=== PATIENT | male | born 1940 | race Caucasian/White ===

== ENCOUNTER 2024-12-09 14:33 | Emergency (ER) | payer MEDICARE, MEDICAID, SELFPAY ==
[2024-12-09 15:03] VITALS: BP 167/61
--- NOTE | 2024-12-09 15:09 | ED.GENMED ---
History of Present Illness
General
Chief Complaint: Fall
Source: long term (Called and spoke with nursing facility who reports patient had an unwitnessed fall in the shower with suspected head strike.)
Exam Limitations: dementia
Time Seen by Provider: 12/09/24 14:38
Nursing documentation reviewed up to this point in time: agreed with
History of Present Illness
History of Present Illness:
Patient is an 84-year-old male with history dementia, hypertension, hyperlipidemia, diabetes presenting to the emergency department via EMS from nursing facility for unwitnessed fall. Patient arrives alert although is unable to contribute much to
history given dementia. Did call and speak to nurse at facility who reports that patient wandered off and got in the shower where he slipped and fell. This was an unwitnessed fall. However�people were able to get in quickly to assist him. They do
note that he has a bump on the back of his head. Patient does report some mild pain on the right and left side of his neck although no midline tenderness. No numbness/tingling in lower extremities. No extremity pain.
Patient takes a baby aspirin. No other blood thinners.
Review of Systems
Review of Systems
Allergies reviewed?: Yes
All Other Systems: ROS reviewed and negative except as documented in HPI and ROS
Phy Exam
Physical Exam
Physical Exam:
GENERAL: No acute distress
HEENT: Mild contusion noted to posterior scalp, extraocular muscles intact, no signs of entrapment, dentition intact, no other obvious trauma
NECK: Very mild tenderness to right and left upper trapezius, no midline tenderness, normal range of motion, no other obvious trauma
BACK: no midline tenderness, no other obvious trauma
CHEST: no tenderness, no flail segment, no subcutaneous emphysema, no other obvious trauma
LUNGS: clear to auscultation bilaterally. O2 saturation 99 on room air
CARDIOVASCULAR: regular rate and rhythm
ABDOMEN: soft, non-tender, no masses, no other obvious trauma
PELVIS: stable, no obvious injury
EXTREMITIES: moving all extremities, full range of motion in bilateral lower extremities including internal/external rotation of hips without pain, distal pulses intact, no other obvious trauma
NEUROLOGIC: awake, alert x [address], not time, no focal deficits
Course
Orders/Labs/Results
Orders:
Orders
12/09/24 14:49
CT Head W/o Iv Contrast Urgent
Comment:
Reason For Exam: unwitnessed fall, head strike
Cervical Spine wo Contrast CT [CT Cervical Spine W/o Iv Contr] Urgent
Comment:
Reason For Exam: unwitnessed fall, head strike, left neck pain
Acetaminophen [Tylenol] 650 mg PO NOW STA
Abnormal Lab Results
12/09/24
17:29
POC Glucose 156 H mg/dl
(70-99)
Vital Signs
Initial and Last Documented VS:
Initial Vital Signs
Temp Pulse Resp
97.7 F 71 18
12/09/24 14:36 12/09/24 14:36 12/09/24 14:36
Last Documented Vital Signs
Temp Pulse Resp BP Pulse Ox
97.7 F 84 18 155/73 98
12/09/24 14:36 12/09/24 16:00 12/09/24 16:00 12/09/24 16:00 12/09/24 16:00
MDM/Problems Addressed
Differential Diagnosis Includes:
Not limited to: Contusion, concussion, intra cerebral hemorrhage, cervical spine fracture, etc.
MDM/Problems Addressed:
84-year-old male presenting after unwitnessed fall with head strike. Patient at baseline mental status as he does have a history of dementia. No acute complaints. Hypertensive, otherwise stable vital signs on arrival. On exam�patient is
well-appearing, in no apparent distress. Mild contusion noted to posterior scalp. No midline cervical spine or spinal tenderness. However�there is very mild tenderness to the upper trapezius on both right and left side. Patient has full range of
motion in bilateral upper and lower extremities without pain. Abdomen soft and nontender. Cardio/pulmonary assessment unremarkable. Patient has regular pulse. Patient has no focal neurologic deficits. Patient does take a baby aspirin, otherwise
no blood thinners. Fall appears to be mechanical in nature, as he slipped in shower. Accu-Chek obtained with no evidence of hypoglycemia. Given unwitnessed nature of fall and head strike�will obtain CT head and cervical spine.
Update: CT head and cervical spine without any acute abnormalities. Patient has remained stable in no apparent distress. Possible minor cervical muscle strain. Patient is not hypoxic. His vital signs remained stable. He is in no discomfort.
Feel patient is stable for discharge home to facility. Return precautions discussed. Case discussed with attending physician.
Chronic conditions affecting care:
Dementia
Acute Exacerbation and/or Progression of Chronic Illness:
N/A
*Radiology
Radiology exam reviewed: radiology read reviewed
*Pulse Oximetry
Patient hypoxic: no
*EKG
Interpreted by ED Provider?: NA
*Seismograph Chief Interpretation
Rate: Seismograph Chief- N/A
*Critical Care Note
Total Time (30-74mins, 75-104mins- exclusive of procedures): Not Applicable
ED Attending Note
-
Portions of this chart may have been created with voice recognition software.� Occasional wrong word or��sound alike� substitutions may have occurred due to the inherent limitations of voice recognition software.
Discharge Plan
Departure
Patient Disposition: Home (Routine Discharge)
Date of Disposition: 12/09/24
Time of Disposition: 17:33
Patient with high blood pressure during this ER visit?: No
Condition: Good
Covid-19: Not Applicable
Discharge Problem:
Fall, Head injury
Instructions: Head injury in adults, Fall Prevention for Older Adults
Referrals:
Avel Ma I., DO [Family Provider] - Follow up in 2-3 days
Activity Restrictions/Additional Instructions:
Return to the emergency department with any changes in mental status, severe headache/neck pain, intractable nausea/vomiting, visual changes, weakness, numbness/tingling in extremities, worsening in current symptoms, or any other concerns
�As discussed your CT head and CT cervical spine showed no acute injuries from your fall today.
-You can take Tylenol as needed for any discomfort. Stay well-hydrated.
-Follow-up with your primary care provider in a few days to ensure symptoms are improving/for further evaluation
Monitor your symptoms closely and return to the emergency department any acute worsening/new symptoms or any other concerns
Interventions
Interventions:
*Risk Screen - Suicide Last Done: 12/09/24 14:36
*General Assessment Last Done: 12/09/24 14:36
*Neglect/Abuse Screening Last Done: 12/09/24 14:36
*ED COVID-19 Vaccine History Last Done: 12/09/24 14:36
ED-Musculoskeletal Assessment Last Done: 12/09/24 14:43
ED- Neurological Assessment Last Done: 12/09/24 14:43
ED-Skin Assessment Last Done: 12/09/24 14:43
Discharge Date and Time
Print Language: LEBANESE
[2024-12-09 16:00] VITALS: BP 155/73
[2024-12-09 17:30] LABS: Glucose - Point of Care 156 mg/dl (70-99)
[2024-12-09 18:28] VITALS: BP 155/68
== END 2024-12-09 19:48 ==
LOC: EMR 14:33
PROVIDERS: EMERGENCY PHYSICIAN Emergency Medicine; FAMILY PHYSICIAN Internal Medicine
DX: S00.03XA Contusion of scalp, initial encounter (principal); W18.2XXA Fall in (into) shower or empty bathtub, initial encounter; F03.90 Unspecified dementia, unspecified severity, without behavioral disturbance, psychotic disturbance, mood disturbance, and anxiety; E11.9 Type 2 diabetes mellitus without complications; E78.5 Hyperlipidemia, unspecified; I10 Essential (primary) hypertension
CPT/HCPCS: 99284; 70450; 72125; 82962

== ENCOUNTER 2024-12-27 13:35 | Inpatient (IN) | payer MEDICARE, OTHER, SELFPAY ==
[2024-12-27] VITALS (9 sets, daily range): BP systolic 112–161; BP diastolic 48–72; BMI 22.9
[2024-12-27 09:41] LABS: Hematocrit 36.5 % (39.0-52.0); Mean Corp Hgb Conc. 32.9 g/dL (33.0-37.0); Mean Corpuscular Hgb 32.5 pg (27.0-31.0); Mean Corpuscular Volume 98.9 fL (80.0-94.0); Mean Platelet Volume 11.4 fL (7.4-10.4); Platelet Count 202 10^3/uL (130-400); Red Blood Cell Count 3.69 10^6/uL (4.70-6.10); Red Cell Dist. Width 15.9 % (11.5-14.5); White Blood Cell Count 16.9 10^3/uL (4.8-10.8)
[2024-12-27 09:53] LABS: ALT (SGPT) 15 U/L (0-50); AST (SGOT) 23 U/L (17-59); Albumin 4.1 g/dl (3.5-5.0); Alkaline Phosphatase 111 U/L (38-126); Blood Urea Nitrogen 34 mg/dl (9-20); Carbon Dioxide 32 mmol/L (22-30); Chloride 101 mmol/L (98-107); Glucose 116 mg/dl (70-99); Potassium 4.5 mmol/L (3.5-5.1); Sodium 142 mmol/L (135-145); Total Bilirubin 1.3 mg/dl (0.2-1.3); Total Protein 6.4 g/dl (6.3-8.2); eGFR > 60.00
[2024-12-27 09:58] LABS: Urine Albumin 2+ (Neg - Trace); Urine Bilirubin Negative (Negative); Urine Character Slightly Cloudy (Clear); Urine Color Yellow; Urine Glucose Negative (Negative); Urine Ketone Negative (Negative); Urine Leukocyte 2+ (Negative); Urine Nitrite Negative (Negative); Urine Occult Blood 4+ (Negative); Urine Urobilinogen 1+ (Neg - 1+)
[2024-12-27 10:02] LABS: COVID-19 Antigen Negative (Negative)
--- NOTE | 2024-12-27 10:36 | ED.GENMED ---
History of Present Illness
General
Chief Complaint: Change in Mental Status
Time Seen by Provider: 12/27/24 10:09
History of Present Illness
History of Present Illness:
84-year-old male with history of dementia, hypertension, hyperlipidemia, peripheral vascular disease, and gij-[id number] diabetes presents to the emergency department for evaluation of altered mental status for the past several days. Arrives
with a fever noted on vital signs. Patient states 'I think I am okay'. He denies any pain at this time. History otherwise limited due to dementia
Review of Systems
Review of Systems
Allergies reviewed?: Yes
All Other Systems: ROS reviewed and negative except as documented in HPI and ROS
Phy Exam
Physical Exam
Physical Exam:
GEN: Well appearing, NAD, WDWN
HEENT: Oral mucosa moist, no scleral icterus
Cardiac: Mildly tachycardic and irregular
Lung: No respiratory distress, no tachypnea, crackles heard at the bases bilaterally
MSK: No gross deformity or injuries, 2+ pitting edema to the mid lower legs bilaterally
Skin: Good color, no pallor or jaundice, no rashes
Neuro: Asleep, arouses to voice, confused but answers simple questions appropriately, moves all extremities freely
Psych: Calm, cooperative
Sepsis
Sepsis Screening
Sepsis Assessment: Severe Sepsis
Sepsis Screening: Lactate >2mmol/L
Sepsis Screen
Sepsis Screen: Severe Sepsis
Date: 12/27/24
Time: 10:30
Course
Orders/Labs/Results
Orders:
Orders
12/27/24 09:25
NT-proBNP Urgent
Troponin I Urgent
12/27/24 09:28
COVID-19 Antigen Urgent
Source: Nasal Swab
Complete Blood Count/With Diff Urgent
Comprehensive Metabolic Panel Urgent
Glycohemoglobin (HgbA1c) Urgent
Manual Differential Urgent
Urinalysis Reflex To Culture Urgent
Date Specimen was Collected: 12/27/24
Time Specimen was Collected: 09:23
Urine Microscopic Reflex Cult Urgent
Influenza A+B Rapid Molecular Urgent
HARRIS Source: Nasal Swab
Specimen Description:
Legionella Urinary Antigen Urgent
HARRIS Source: Urine
Specimen Description:
Strep pneumoniae Antigen Urgent
HARRIS Source: Urine
Specimen Description:
Urine Culture Urgent
HARRIS Source: U
Specimen Description:
Date Specimen was Collected: 12/27/24
Time Specimen was Collected: 09:23
12/27/24 Lunch
NPO
Allow oral meds: Yes
Allow clear liquids: Sips of Clears
NPO with Ice Chips: Yes
12/27/24 10:37
0.9% Sodium Chloride 1000 ml [Nss] 1,000 ml IV BOLUS
Acetaminophen 1000MG/100Ml [Ofirmev] 1,000 mg in 100 ml IV ONCE
Acetaminophen IV Indication:: ED Narcotic Naive Pt-ONCE
12/27/24 10:38
CR Chest Portable - 1 View Urgent
Comment:
Reason For Exam: fever
Reason Study Needs to be Portable: Other
12/27/24 10:39
Electrocardiogram (*1) Urgent
Reason for Study: Tachycardia
12/27/24 10:54
Lactic Acid Q4H
Comment: CANCEL 2nd LACTIC ACID IF 1st LACTIC ACID IS LESS THAN 2
Blood Culture Q30M
HARRIS Source: Blood/Venous
Specimen Description:
12/27/24 10:55
Blood Culture Q30M
HARRIS Source: Blood/Venous
Specimen Description:
12/27/24 11:21
CefTRIAXone [Rocephin] 1,000 mg IV NOW STA
12/27/24 11:44
Azithromycin 500 mg/250 ml [Zithromax Infusion] 500 mg in 250 ml IV NOW
12/27/24 11:54
Furosemide [Lasix] 40 mg IV ONCE ONE
12/27/24 12:28
CT Abd/pel Without Iv Or Oral Urgent
Comment:
Reason For Exam: UTI, eval hydronbephrosis
12/27/24 12:51
CARDIOLOGY CONSULT Routine
Consulting Provider: Reuben Orozco
Was physician already notified: Yes
Reason for consult: elevated trop
12/27/24 12:52
Respiratory Culture/Gram Stain Urgent
HARRIS Source: Sputum
Specimen Description:
12/27/24 12:53
Admit/Transfer Patient As Directed
Co-Sign Provider:
Level of Care: Inpatient admission
Assign to:: Telemetry
Physician / Group: Hospitalist
Diagnosis: sepsis
Reason for Telemetry: Chest Pain syndromes
Date to Stop Telemetry: 12/29/24
Time to Stop Telemetry: 11:00
Reason for Hospitalization: sepsis
Expected length of stay greater than two midnights?: Yes
ELOS- Estimated Length of Stay in days: 4
I certify the patient meets the requirements for IP care: Yes
PRN Pain Medication Management As Directed
May give lesser potent ordered pain med per pt: Yes
preference::
Protocol:: Medication orders for pain may be administered in a
manner that supports deferring to patient preference
when the pt is:
- Requesting an ordered lesser potent pain medication.
Least to most potent pain medications are defined
as: acetaminophen < NSAID < tramadol < opioids
(morphine, oxycodone, hydromorphone).
- Requesting a lesser dose of the same medication IF
ORDERED.
- Requesting a less intrusive route of administration
if both routes are prescribed by the provider (PO <
IV).
12/27/24 12:54
Code Status As Directed
Resuscitation Status: Do not resuscitate
Reached after discussion with pt or family/Healthcare POA: Yes
DNR Bracelet Application ONCE
12/27/24 13:00
Dextrose 5%/0.9%Sodchl 1000 ml [D5/0.9% Sodium Chloride] 1,000 ml IV 70 mls/hr
Flush (0.9% Sodium Chloride) [Flush (Nss)] See Dose Instructions IV PER PROTOCOL
12/27/24 13:54
Lactic Acid Q4H
Comment: CANCEL 2nd LACTIC ACID IF 1st LACTIC ACID IS LESS THAN 2
Troponin I Q6H
12/27/24 14:00
Doxycycline Hyclate [Vibramycin] 100 mg 0.9% Sodium Chloride 250 ml [Nss] 250 ml IV Q12H
12/27/24 14:36
Acetaminophen [Tylenol] 650 mg PO Q4HPRN PRN
Bisacodyl [Dulcolax] 10 mg RECTAL [id number] PRN
Dextrose 50%-Water [Dextrose 50% Syringe] 12.5 grams IV [id number] PRN
Docusate W/Senna [Senokot-S] 1 tablet PO BIDPRN PRN
Glucagon [GlucaGen] 1 mg IM PRN PRN
Polyethylene Glycol Powder [Miralax] 17 grams PO DAILYPRN PRN
12/27/24 14:36
Add On- LAB Routine
Tests Added?: HgbA1C to today's lab
Echo 2D MMode Color/Doppler Routine
Reason for Study: elevated troponin
Activity As Directed
Activity Level: Out of Bed-Early Mobility
Vital Signs As Directed
Frequency: Per unit guidelines
O2 Therapy [RESP] Routine
Titrate/Wean O2 to maintain O2 sat greater than (%): 90
Speech Therapy Eval & Treat Routine
DX Deep Vein Thrombosis Video Routine
12/27/24 16:00
Heparin 5,000 units SC Q8
12/27/24 16:30
Insulin Aspart Corrective Low [Novolog Flexpen-Low Resistance] See Protocol SC AC
12/27/24 18:30
Troponin I Q6H
12/28/24 00:30
Troponin I Q6H
12/28/24 06:00
Complete Blood Count/With Diff IN AM
Comprehensive Metabolic Panel IN AM
Glycohemoglobin (HgbA1c) IN AM
12/28/24 06:30
Troponin I Q6H
12/28/24 08:00
Allopurinol [Zyloprim] 300 mg PO DAILY
Atorvastatin [Lipitor] 10 mg PO DAILY
Ferrous Sulfate [Feosol] 325 mg PO DAILY
12/28/24 12:00
CefTRIAXone [Rocephin] 1,000 mg IV Q24H
Sterile Water [Sterile Water For Injection] 10 ml IV Q24H
12/29/24 11:00
DC Protocol for Telemetry ONCE
Abnormal Lab Results
12/27/24 12/27/24 12/27/24
09:28 10:54
WBC 16.9 H 10^3/uL
(4.8-10.8)
RBC 3.69 L 10^6/uL
(4.70-6.10)
Hgb 12.0 L g/dL
(13.0-18.0)
Hct 36.5 L %
(39.0-52.0)
MCV 98.9 H fL
(80.0-94.0)
MCH 32.5 H pg
(27.0-31.0)
MCHC 32.9 L g/dL
(33.0-37.0)
RDW 15.9 H %
(11.5-14.5)
MPV 11.4 H fL
(7.4-10.4)
Abs Neuts (Manual) 13.5 H 10^3/uL
(1.4-6.5)
Band Neutrophils 12 H %
(0-3)
Lymphocytes (Manual) 12 L %
(20-51)
Carbon Dioxide 32 H mmol/L
(22-30)
BUN 34 H mg/dl
(9-20)
Glucose 116 H mg/dl
(70-99)
Lactic Acid 2.1 H mmol/L
(0.7-2.0)
Troponin I 0.377 H* ng/ml
Ur Occult Blood Reflex 4+ A
(Negative)
Leukocyte Esterase Rfl 2+ A
(Negative)
Urine RBC 3-6 A /HPF
(0-2)
Urine WBC (Reflex) 30-40 A /HPF
(0-5)
Urine Bacteria (Reflex) Many A
(Negative)
Urine Albumin (Reflex) 2+ A
(Neg - Trace)
12/27/24 09:28
12/27/24 09:28
Vital Signs
Initial and Last Documented VS:
Initial Vital Signs
Pulse Resp BP Pulse Ox
89 22 142/63 92
12/27/24 09:16 12/27/24 09:16 12/27/24 09:16 12/27/24 09:16
Last Documented Vital Signs
Temp Pulse Resp BP Pulse Ox
97.4 F 72 18 138/59 94
12/27/24 15:08 12/27/24 15:08 12/27/24 15:08 12/27/24 15:08 12/27/24 15:08
MDM/Problems Addressed
MDM/Problems Addressed:
Patient's urinalysis is suggestive of possible UTI, also noted to have bilateral pulmonary infiltrates which could represent pneumonia or fluid due to CHF. Ultimately he is septic with an elevated white blood cell count thus we will admit him for
IV antibiotics, meets severe sepsis criteria on the basis of elevated lactic acid.
*Critical Care Note
Total Time (30-74mins, 75-104mins- exclusive of procedures): Not Applicable
ED Attending Note
-
Portions of this chart may have been created with voice recognition software.� Occasional wrong word or��sound alike� substitutions may have occurred due to the inherent limitations of voice recognition software.
Discharge Plan
Departure
Patient Disposition: Admit
Date of Disposition: 12/27/24
Time of Disposition: 11:27
Admit to: Med/Surg
Presentation/result/management discussed w/ accepting MD/DO: Hospitalist
Discharge Problem:
Urinary tract infection
Interventions
Interventions:
*Risk Screen - Suicide Last Done: 12/27/24 09:16
*General Assessment Last Done: 12/27/24 09:16
*Neglect/Abuse Screening Last Done: 12/27/24 09:16
ED- Fall Risk Assessment Last Done: 12/27/24 09:16
*ED COVID-19 Vaccine History Last Done: 12/27/24 09:16
*Nursing Disposition Last Done: 12/27/24 15:11
ED- Neurological Assessment Last Done: 12/27/24 09:16
ED- Cardiac Assessment Last Done: 12/27/24 09:16
Discharge Date and Time
Discharge Date/Time: 12/27/24 15:12
[2024-12-27 10:55] LABS: Urine Amorphous Seen; Urine Squamous Cell 26-30 /LPF (Few)
[2024-12-27] MEDS: NSS 1000 IV (10:56)
[2024-12-27 10:57] LABS: Urine Bacteria Many (Negative); Urine White Cell 30-40 /HPF (0-5)
[2024-12-27] MEDS: OFIRMEV 100 IV (10:57)
[2024-12-27 11:29] LABS: Lactic Acid 2.1 mmol/L (0.7-2.0)
[2024-12-27] MEDS: ROCEPHIN 1000 MG IV (11:39)
[2024-12-27 11:45] LABS: NT-proBNP 8820 pg/ml; Troponin I 0.377 ng/ml
[2024-12-27] MEDS: LASIX 40 MG IV (12:44)
[2024-12-27] MEDS: ZITHROMAX INFUSION 250 IV (12:45)
[2024-12-27 12:49] LABS: Absolute Neutrophils -Man Diff 13.5 10^3/uL (1.4-6.5); Band Neutrophils 12 % (0-3); Eosinophils 1 % (0-6); Lymphocytes 12 % (20-51); Monocytes 6 % (2-9); Normal RBC Morphology Yes; Platelets Checked Yes; Segmented Neutrophils 68 % (42-75); Total Cells Counted 100
[2024-12-27 12:50] LABS: Myelocytes 1 % (-); Toxic Granulation 1+
--- NOTE | 2024-12-27 12:58 | HPS.HSE ---
Family Physician
-
Family Physician: Avel Ma
Chief Complaint
-
AMS
History of Present Illness
84yo M with PMHx of CAD s/p CABG, HLD, gout, DEVIN, DM, lewy body dementia, recurrent constipation camefrom [facility] with worsening AMS, weakness and hypoxia for couple of days. On arrival cannot provide Hx, mostly mumbling, sleepy but
arousable. His baseline mental condition is fluctuating and as per daughter - he had recent worsening of his cognitive abilities, unable to recognize his daughter.
Medical History
Past Medical History
Past Medical History: Reports Other
Additional Past Medical History:
see HPI
Past Surgical History: Reports Other
Additional Past Surgical History:
See HPI
Social History
Unable to obtain full social history at this time due to: Dementia
Family History
Family History: Not pertinent
Allergies / Home Medications
Allergies reflects when Allergies were last updated in [employer].
Home Medications with original date entered in [employer]
Allergy/Medication List:
Allergies
Allergy/AdvReac Type Severity Reaction Status Date / Time
No Known Allergies Allergy Verified 12/27/24 09:22
Home Medications
acetaminophen 325 mg tablet 325 mg PO Q8HPRN PRN mild pain 12/27/24
allopurinol 300 mg tablet 300 mg PO DAILY 12/27/24
aspirin 81 mg chewable tablet 81 mg PO DAILY 12/27/24
atorvastatin 10 mg tablet 10 mg PO DAILY 12/27/24
bisacodyl 10 mg rectal suppository 10 mg OR DAILY PRN constip, if MOM ineffective 12/27/24
cholecalciferol (vitamin D3) 25 mcg (1,000 unit) tablet (Vitamin D3) 25 mcg PO DAILY 12/27/24
cyanocobalamin (vitamin B-12) 1,000 mcg tablet (Vitamin B-12) 1,000 mcg PO DAILY 12/27/24
ferrous sulfate 325 mg (65 mg iron) tablet (iron) 325 mg PO DAILY 12/27/24
lidocaine 4 % topical gel 1 applic topical Q8HPRN PRN neck pain 12/27/24
loperamide 2 mg capsule 2 mg PO Q6HPRN PRN loose stools 12/27/24
magnesium hydroxide 400 mg/5 mL oral suspension (Milk of Magnesia) 2,400 mg PO HS PRN no BM x 3 days 12/27/24
melatonin 3 mg tablet 3 mg PO HS 12/27/24
polyethylene glycol 3350 17 gram oral powder packet (Miralax) 17 g PO DAILY 12/27/24
sitagliptin phosphate 50 mg tablet (Januvia) 50 mg PO DAILY 12/27/24
Review of Systems
-
Unable to obtain full review of systems at this time due to: Acuity
Physical Exam
Vital Signs
Vital Signs
Temp Pulse Resp BP Pulse Ox
101.5 F H 91 18 142/62 97
12/27/24 09:28 12/27/24 11:45 12/27/24 11:45 12/27/24 11:00 12/27/24 11:45
Physical Exam
General: No Apparent Distress and Fever; No Pain
HEENT: NormoCephalic, Anicteric and Moist mucous membranes
Respiratory: Clear; No Wheezes, Rales or Crackles
Cardiac: S1/S2 and Regular Rhythm
GI: Soft, Non Tender and Non Distended
Musculoskeletal: No Clubbing, No Cyanosis, Edema, Left Lower Extremity and Edema, Right Lower Extremity
Skin: Warm
Neuro: Awake and Sedated
Psych: Calm and Apparent Dementia
Laboratory Results
-
12/27/24 09:28
12/27/24 09:28
Laboratory Results
Lactic Acid 2.1 mmol/L (0.7-2.0) H 12/27/24 10:54
Total Bilirubin 1.3 mg/dl (0.2-1.3) 12/27/24 09:28
AST 23 U/L (17-59) 12/27/24 09:28
ALT 15 U/L (0-50) 12/27/24 09:28
Alkaline Phosphatase 111 U/L (38-126) 12/27/24 09:28
Troponin I 0.377 ng/ml H* 12/27/24 09:25
Impression/Plan
-
A/P:
#Acute toxic metabolic encephalopathy 2/2 UTI vs pneumonia
#Acute hypoxic insufficiency
#Sepsis on admission
Check legionella and S/pneumonia urinary Ag
[place] sputum Cx if possible
Gentle hydration while cleared by speech
Rocephin/Doxy
Ucx
Bcx
CT abd/pelvis
watch for urinary retention
wean off O2
#Elevated troponin
unable to assess for chest pain
most likely infection related
Echo, card consult
serial trop
#Lewy Body dementia
frequent reorientation
#DM type 2 with neuropahty
Insulin SS, accuchecks, DM diet
hold januvia
#DEVIN
#Gout
#Chronic constipation
cont home meds
DVT ppx hep
DNR/DNI as confirmed with daughter over the phone
I have spent at least 59min reviewing chart, test results, communication with consultants and family and providing direct patient care
--- NOTE | 2024-12-27 14:07 | CON.CAR ---
Addendum entered and electronically signed by Reuben Orozco MD 12/27/24 17:04:
I saw and examined the patient.
The ERADICATOR's note was reviewed and I agree with the note.
Comment:
84-year-old man with probable CAD and dementia who presented with change in mental status, concerning for toxic metabolic encephalopathy due to UTI versus pneumonia. Cardiology is consulted for elevated troponin. On my interview, he is confused but
denies chest pain. He has a median sternotomy scar but cannot tell me what surgery he had done. Labs are notable for WBC 16.9, creatinine 1.2, lactate 2.1, troponin 0.377 -> 0.555. ECG reveals normal sinus rhythm with first-degree AV block, LAFB,
no evidence of ischemia. His troponin elevation is likely due to nonischemic myocardial injury in the setting of sepsis. We will trend troponin to peak and check an echocardiogram. He likely had a prior CABG as he has sternal wires on his chest
x-ray and no obvious valve replacements. Continue aspirin 81 mg and atorvastatin 10 mg daily.
Original Note:
Consultation
Consultation Request
Date/Time Consultation Requested: 12/27/2024 12:50
Date/Time Consultation Performed: 12/27/2024 14:00
Requesting Provider: Dr. Ziegler
Performing Provider: KEI Manzo for Dr. Orozco
Reason for Consultation: Abnormal troponin
Medical History
-
Chief Complaint: Change in mental status
History of Present Illness:
Diego Gilbert is an 84-year-old male with a past medical history of CAD, hypertension, dyslipidemia, prostate cancer, type 2 diabetes mellitus, PVD, iron deficiency anemia and dementia who presented to the emergency department from [facility] with a
chief complaint of change in mental status. He is confused on exam but denies chest pain. Chest x-ray with bilateral pneumonia. UA with leukocytes and white blood cells. His mental status has been off for several days.
Past Medical History
Past Medical History: CAD, Cancer (Prostate), HTN, Hypercholesterolemia, NIDDM and Other (PVD, DEVIN, Dementia)
Past Surgical History: Cardiac and Orthopedic
Social History
Living: Assisted ([facility])
Employment: Retired
Family History
Family History: Unable to Obtain
Allergies / Home Medications
Allergy/AdvReac Type Severity Reaction Status Date / Time
No Known Allergies Allergy Verified 12/27/24 09:22
�Medication �Instructions �Recorded �Confirmed �Type
acetaminophen 325 mg tablet 325 mg PO Q8HPRN PRN mild pain 12/27/24 12/27/24 History
allopurinol 300 mg tablet 300 mg PO DAILY 12/27/24 12/27/24 History
aspirin 81 mg chewable tablet 81 mg PO DAILY 12/27/24 12/27/24 History
atorvastatin 10 mg tablet 10 mg PO DAILY 12/27/24 12/27/24 History
bisacodyl 10 mg rectal suppository [address] DAILY PRN constip, if MOM 12/27/24 12/27/24 History
ineffective
cholecalciferol (vitamin D3) 25 25 mcg PO DAILY 12/27/24 12/27/24 History
mcg (1,000 unit) tablet (Vitamin
D3)
cyanocobalamin (vitamin B-12) 1,000 mcg PO DAILY 12/27/24 12/27/24 History
1,000 mcg tablet (Vitamin B-12)
ferrous sulfate 325 mg (65 mg 325 mg PO DAILY 12/27/24 12/27/24 History
iron) tablet (iron)
lidocaine 4 % topical gel 1 applic topical Q8HPRN PRN neck 12/27/24 12/27/24 History
pain
loperamide 2 mg capsule 2 mg PO Q6HPRN PRN loose stools 12/27/24 12/27/24 History
magnesium hydroxide 400 mg/5 mL 2,400 mg PO HS PRN no BM x 3 days 12/27/24 12/27/24 History
oral suspension (Milk of Magnesia)
melatonin 3 mg tablet 3 mg PO HS 12/27/24 12/27/24 History
polyethylene glycol 3350 17 gram 17 g PO DAILY 12/27/24 12/27/24 History
oral powder packet (Miralax)
sitagliptin phosphate 50 mg tablet 50 mg PO DAILY 12/27/24 12/27/24 History
(Januvia)
Review of Systems
-
Unable to obtain full review of systems at this time due to: Dementia
Physical Exam
Vital Signs
Temp Pulse Resp BP Pulse Ox
101.5 F H 91 18 142/62 97
12/27/24 09:28 12/27/24 11:45 12/27/24 11:45 12/27/24 11:00 12/27/24 11:45
Lab Results
12/27/24 09:28
12/27/24 09:28
Troponin I 0.377 ng/ml H* 12/27/24 09:25
Hdi-Q-Jmlpzfxkhfi Pept 8820 pg/ml 12/27/24 09:25
Physical Exam
General: Well Developed and No Apparent Distress
HEENT: Normocephalic, Anicteric and Moist Mucous Membranes
Respiratory: Rhonchi and Non Labored Respirations
Cardiac: S1/S2, Regular Rhythm and Murmur
Breast: Deferred by me
GI: Soft, Non Tender, Non Distended and Normal Bowel Sounds
Rectal: Deferred by Provider
Genito-urinary: No Costovertebral Tender
Skin: Warm and Dry
Neuro: AO x 3
Hematologic/Lymphatic: No Lymphadenopathy
Psych: Calm
Impression / Plan
-
BACKGROUND: 84M with CAD, hypertension, dyslipidemia, prostate cancer, type 2 diabetes mellitus, PVD, iron deficiency anemia and dementia who presented to the emergency department from [facility] with a chief complaint of change in mental
status. Cardiology was consulted for abnormal troponin.
Sepsis, suspected pneumonia vs UTI
-Lactic acidosis, leukocytosis, febrile
-Per primary service
Abnormal troponin, likely nonischemic myocardial injury in the setting of acute illness (sepsis)
-Presenting troponin 0.377, currently 0.555, trend to peak
-No acute ischemia on EKG, trend with troponin
-Denies CP
Coronary artery disease
-Prior CABG? Sternal wires on CXR
-Continue ASA & statin
NIDDM
Prostate cancer
Iron deficiency anemia, chronic, per primary
PVD
Dementia, chronic
Data Reviewed
-
EKG: Report Reviewed by me
Radiology: Report Reviewed by me (CXR: Patchy parenchymal opacity within the right lower lung and the left mid to lower lung, with appearance most suggestive of bilateral pneumonia. No evidence for associated pleural effusion.)
Labs: Labs Reviewed by me
Old Records: Reviewed
[2024-12-27] MEDS: VIBRAMYCIN 260 MG IV (14:11)
[2024-12-27] MEDS: D5/0.9% SODIUM CHLORIDE IV (14:12)
[2024-12-27 14:18] LABS: Lactic Acid 1.1 mmol/L (0.7-2.0)
[2024-12-27 14:34] LABS: Troponin I 0.555 ng/ml
[2024-12-27] MEDS: D5/0.9% SODIUM CHLORIDE 1000 IV (15:32)
--- NOTE | 2024-12-27 16:49 | PTOTSP ---
Speech Therapy Evaluation:
Pt presents with clinical signs of oropharyngeal dysphagia, likely chronic in nature related to hx of dementia, compounded by altered mental status. Oral phase prolonged and mildly discoordinated with puree, although appeared grossly functional. No
s/sx of aspiration across PO trials, though solids deferred on this date given mentation and edentulous state. WBC increased. CXR with bilateral PNA.
Recommend:
1. Initiate cautious diet of IDDSI Level 4 (puree) and thin liquids
2. Medications as tolerated
3. 1:1 assistance and supervision with meals
4. d/c oral diet if worsening in respiratory status/imaging or concerned for aspiration at bedside
5. Aspiration precautions: upright all meals, small bites/sips, slow rate, alternate solids/liquids
6. SETUP OPERATOR to follow to assess diet tolerance, determine candadicy for diet upgrades, and determine if pt would benefit from instrumental assessment.
[2024-12-27 16:54] LABS: Glucose - Point of Care 102 mg/dl (70-99)
[2024-12-27] MEDS: HEPARIN 5000 UNITS SC (17:49)
[2024-12-27 18:53] LABS: Troponin I 0.565 ng/ml
[2024-12-27 21:33] LABS: Glucose - Point of Care 186 mg/dl (70-99)
[2024-12-28] MEDS: HEPARIN 5000 UNITS SC ×3 (00:16→17:36)
[2024-12-28] MEDS: VIBRAMYCIN 260 MG IV ×2 (01:44→14:11)
[2024-12-28 03:32] VITALS: BP 153/76
[2024-12-28 07:00] VITALS: BP 135/75
[2024-12-28 07:36] LABS: Glucose - Point of Care 102 mg/dl (70-99)
[2024-12-28 07:41] LABS: Hematocrit 33.7 % (39.0-52.0); Hemoglobin 10.9 g/dL (13.0-18.0); Mean Corp Hgb Conc. 32.3 g/dL (33.0-37.0); Mean Corpuscular Hgb 32.2 pg (27.0-31.0); Mean Corpuscular Volume 99.4 fL (80.0-94.0); Mean Platelet Volume 11.7 fL (7.4-10.4); Platelet Count 188 10^3/uL (130-400); Red Blood Cell Count 3.39 10^6/uL (4.70-6.10); Red Cell Dist. Width 15.7 % (11.5-14.5); White Blood Cell Count 15.9 10^3/uL (4.8-10.8)
[2024-12-28 07:57] LABS: Troponin I 0.491 ng/ml
[2024-12-28 08:10] LABS: ALT (SGPT) 11 U/L (0-50); AST (SGOT) 20 U/L (17-59); Albumin 3.1 g/dl (3.5-5.0); Alkaline Phosphatase 112 U/L (38-126); Blood Urea Nitrogen 29 mg/dl (9-20); Calcium 8.7 mg/dl (8.4-10.2); Carbon Dioxide 31 mmol/L (22-30); Chloride 101 mmol/L (98-107); Estimated Creatinine Clearance 51 ml/min; Glucose 114 mg/dl (70-99); Potassium 3.5 mmol/L (3.5-5.1); Sodium 139 mmol/L (135-145); Total Bilirubin 0.8 mg/dl (0.2-1.3); Total Protein 5.1 g/dl (6.3-8.2); eGFR > 60.00
[2024-12-28 08:21] LABS: Absolute Neutrophils -Man Diff 13.9 10^3/uL (1.4-6.5); Anisocytosis Slight; Atypical Lymphocytes 1 %; Band Neutrophils 13 % (0-3); Hypochromasia Slight; Lymphocytes 8 % (20-51); Monocytes 3 % (2-9); Normal RBC Morphology No; Ovalocytes 1+; Platelets Checked Yes; Polychromasia Slight; Segmented Neutrophils 75 % (42-75); Total Cells Counted 100
[2024-12-28] MEDS: NOVOLOG FLEXPEN-LOW RESISTANCE SC ×3 (08:33→17:45)
[2024-12-28] MEDS: ZYLOPRIM 300 MG PO (08:36)
[2024-12-28] MEDS: LIPITOR 10 MG PO (08:36)
[2024-12-28] MEDS: DESENEX/MITRAZOL/ZEASORB 1 APPLIC TOPICAL ×2 (08:36→21:56)
[2024-12-28] MEDS: FEOSOL 325 MG PO (08:36)
[2024-12-28 08:48] LABS: Glycohemoglobin (HgbA1c) 6.1 % (4.0-5.6)
--- NOTE | 2024-12-28 09:15 | W.PN.CD ---
Today's Communication / Plan
-
no further cardiac recommendations
I will sign off
Impression / Plan
-
BACKGROUND: 84M with CAD, hypertension, dyslipidemia, prostate cancer, type 2 diabetes mellitus, PVD, iron deficiency anemia and dementia who presented to the emergency department from [facility] with a chief complaint of change in mental
status. Cardiology was consulted for abnormal troponin.
Sepsis, suspected pneumonia vs UTI
-Lactic acidosis, leukocytosis, febrile
-Per primary service
Abnormal troponin, likely nonischemic myocardial injury in the setting of acute illness (sepsis)
-Presenting troponin 0.377, currently 0.555, 0.565
-No acute ischemia on EKG, trend with troponin
-Denies CP
Coronary artery disease
-Prior CABG? Sternal wires on CXR
-Continue ASA & statin
NIDDM
Prostate cancer
Iron deficiency anemia, chronic, per primary
PVD
Dementia, chronic
Subjective:
he has no bp or sob. He knows he is in [place] and but not a hospital
Physical Exam
Vital Signs/Labs
Vital Signs
Temp Pulse Resp BP Pulse Ox
98.5 F 85 16 135/75 96
12/28/24 07:00 12/28/24 07:00 12/28/24 07:00 12/28/24 07:00 12/28/24 07:00
12/27/24 12/28/24 12/29/24
06:59 06:59 06:59
Actual Weight 64.41 kg
12/28/24 07:00
12/28/24 06:59
12/27/24
09:25
Pzx-O-Rhbaeawhqei Pept 8820
LAB Results
12/27/24 12/27/24 12/27/24
09: 13:54 18:19
Troponin I 0.377 H* 0.555 H* D 0.565 H*
12/28/24 12/28/24
00:28 06:59
Troponin I 0.490 H* 0.491 H*
Physical Exam
Constitutional: No acute distress
Cardiovascular: Rhythm & rate is regular, Systolic murmur absent, Diastolic murmur absent and Pedal edema present (trace at ankles)
Respiratory: Respiratory effort normal, Lungs clear to auscul., Wheeze Absent and Crackles Absent
Neuro/Psych: AO x 3
Data Reviewed
-
Date of Service: December 28, 2024
EKG: Other (sinus)
[2024-12-28] MEDS: D5/0.9% SODIUM CHLORIDE 1000 IV (10:41)
[2024-12-28 11:15] VITALS: BP 144/69
[2024-12-28 11:50] LABS: Glucose - Point of Care 145 mg/dl (70-99)
[2024-12-28] MEDS: STERILE WATER FOR INJECTION 10 ML IV (13:00)
[2024-12-28] MEDS: ROCEPHIN 1000 MG IV (13:00)
--- NOTE | 2024-12-28 13:45 | PTOTSP ---
ST Follow-Up
Pt currently presents with clinical signs of mild to moderate oral dysphagia characterized by prolonged mastication and bolus formation with a munch chew pattern as well as an occasional weak cough with sequential sips of thin liquids.
Recommendations:
- Upgrade to SOFT BITE SIZED SOLIDS and continue with REGULAR THIN LIQUIDS with SINGLE SIPS ONLY and meds as tolerated.
- Aspiration precautions: Pt must be fully awake, alert, and upright for all PO intake; full supervision/assistance with meals, SINGLE SIPS ONLY; small bites/sips; alternate bites/sips; check for oral clearance.
- BEHAVIORAL SERVICES TECH to f/u re: diet tolerance and to determine if pt would benefit from an instrumental swallow study.
[2024-12-28 15:00] VITALS: BP 159/79
--- NOTE | 2024-12-28 15:53 | W.PN.HOSP.TC ---
Today's Communication/Plan
-
Continue antibiotics
Resume diet with aspiration precautions
Wean off IV fluids if sufficient oral intake.
Assessment / Plan
Assessment / Plan
Impression:
Acute mental status change secondary to metabolic encephalopathy in the settings of sepsis.
Acute hypoxic respiratory insufficiency secondary to pneumonia
Pneumonia with bilateral infiltrates concerning for aspiration syndrome.
Abnormal urinalysis concerning for UTI.
Nonischemic cardiac injury in the settings of infection
Lactic acidosis
Other conditions:
Lewy body dementia.
Diabetes type 2
Neuropathy pain
Iron deficiency anemia.
Gout.
Chronic constipation.
History of prostate cancer
History of cholecystectomy
Plan:
Sepsis present on admission.
Pneumonia with concern for aspiration syndrome. Chest x-ray with bilateral infiltrate
COVID-19 negative
Influenza negative
Legionella and streptococcal antigen negative
Blood cultures negative to date
Less likely UTI: Abnormal urinalysis with urine culture showed contaminants
Continued ceftriaxone and doxycycline
Attempt to wean off O2 as tolerates.
Diet to be advanced with aspiration.
Toxic metabolic cephalopathy
Improving with antibiotics and hydration
Exam with no focal findings.
Monitor closely
Nonischemic cardiac injury in the settings of sepsis.
Troponin flat at 0.5
EKG with no ischemia.
Cardiology input appreciated.
Type 2 diabetes with neuropathy.
Resume diet with aspiration precautions per
Resume Januvia at baseline continue basal bolus protocol
CODE STATUS DNR.
DVT prophylaxis heparin
Anticipated Discharge: 24 - 48 hours
Subjective/Interval History
-
Date of Service: December 28, 2024
Objective Data
-
Labs:
Laboratory Results
12/28/24 12/28/24
06:59 07:00
WBC 15.9 H
Hgb 10.9 L
Hct 33.7 L
Plt Count 188
Sodium 139
Potassium 3.5
Chloride 101
Carbon Dioxide 31 H
BUN 29 H
Creatinine 1.0
Glucose 114 H
Calcium 8.7
Total Bilirubin 0.8
AST 20
ALT 11
Alkaline Phosphatase 112
Vital Signs:
Vital Signs
Temp Pulse Resp BP Pulse Ox
98.0 F 86 20 144/69 94
12/28/24 11:15 12/28/24 11:15 12/28/24 11:15 12/28/24 11:15 12/28/24 15:48
I&O
12/27/24 12/28/24 12/29/24
06:59 06:59 06:59
Intake Total 480 / 480
Output Total 1800 / 1800
Balance -1320 / -1320
Physical Exam
-
General: Well Developed and No Apparent Distress
HEENT: Normocephalic, Atraumatic and Moist Mucous Membranes
Respiratory: Clear to Auscultation
Cardiac: Regular Rhythm and S1/S2; Negative Murmur, Rub or Gallop
GI: Soft, Nontender, Nondistended and Normal Bowel Sounds; Negative Organomegaly
Rectal: Deferred by Provider
Musculoskeletal: No Clubbing, No Cyanosis and No Edema
Skin: Negative Rash
Neuro: Nonfocal/Grossly Intact
[2024-12-28] MEDS: D5/0.9% SODIUM CHLORIDE IV (17:35)
[2024-12-28] MEDS: LOW STRENGTH ASPIRIN 81 MG PO (17:38)
[2024-12-28 17:45] LABS: Glucose - Point of Care 119 mg/dl (70-99)
[2024-12-28 19:43] VITALS: BP 120/81
[2024-12-28 21:12] LABS: Glucose - Point of Care 144 mg/dl (70-99)
[2024-12-28] MEDS: MELATONIN 3 MG PO (21:21)
[2024-12-28 23:04] VITALS: BP 146/72
[2024-12-29] VITALS (7 sets, daily range): BP systolic 120–184; BP diastolic 65–94
[2024-12-29] MEDS: HEPARIN 5000 UNITS SC ×3 (01:01→16:14)
[2024-12-29] MEDS: VIBRAMYCIN 260 MG IV (01:02)
[2024-12-29 07:08] LABS: Glucose - Point of Care 108 mg/dl (70-99)
[2024-12-29] MEDS: NOVOLOG FLEXPEN-LOW RESISTANCE SC ×3 (07:30→16:56)
[2024-12-29] MEDS: FEOSOL 325 MG PO (08:48)
[2024-12-29] MEDS: LOW STRENGTH ASPIRIN 81 MG PO (08:48)
[2024-12-29] MEDS: JANUVIA 50 MG PO (08:48)
[2024-12-29] MEDS: ZYLOPRIM 300 MG PO (08:48)
[2024-12-29] MEDS: MIRALAX 17 GRAMS PO (08:48)
[2024-12-29] MEDS: LIPITOR 10 MG PO (08:48)
[2024-12-29] MEDS: DESENEX/MITRAZOL/ZEASORB 1 APPLIC TOPICAL ×2 (08:51→20:15)
[2024-12-29 11:46] LABS: Glucose - Point of Care 92 mg/dl (70-99)
--- NOTE | 2024-12-29 12:10 | W.PN.HOSP.TC ---
Today's Communication/Plan
-
mentation seems improved
PT/OT
Persistent bandemia - will escalate Abx
Assessment / Plan
Assessment / Plan
84yo M with PMHx of CAD s/p CABG, HLD, gout, DEVIN, DM, lewy body dementia, recurrent constipation camefrom [facility] with worsening AMS, weakness and hypoxia, found pneumonia and UTI
A/P:
#Acute toxic metabolic encephalopathy 2/2 UTI vs pneumonia
#Acute hypoxic insufficiency
#Sepsis on admission
legionella and S.pneumonia urinary Ag neg
Check sputum Cx if possible
Gentle hydration while cleared by speech
Rocephin/Doxy escalated to Cefepime/Vanco on 12/29/24 2/2 persistent bandemia after 48h of Abx
Ucx mixed justin
Bcx NTD
CT abd/pelvis
watch for urinary retention
wean off O2
COVID-19 and Influenza PCR neg
CT abd/pelvis: nonobstructing right renal calculi, small right-sided urinary bladder diverticulum. Probable b/l hydro (due to acute urinary retention)
#Elevated troponin 2/2 non-ischemic myocardial injury
#CAD s/p CABG
ASA, statin
most likely infection related
Echo: EF 55%, Normal regional wall motion
card consult: no concern for ACS
serial trop
#Acute urinary retention
Khan
#Lewy Body dementia
frequent reorientation
#DM type 2 with neuropathy
Insulin SS, accuchecks, DM diet
hold januvia
#DEVIN
#Gout
#Chronic constipation
#Hx of prostate CA
#PVD
cont home meds
DVT ppx hep
DNR/DNI as confirmed with daughter over the phone
I have spent at least 58min reviewing chart, test results, communication with consultants and family and providing direct patient care
Anticipated Discharge: > 48 hours
Subjective/Interval History
-
Date of Service: December 29, 2024
Objective Data
-
Vital Signs:
Vital Signs
Temp Pulse Resp BP Pulse Ox
97.4 F 65 20 154/71 97
12/29/24 11:34 12/29/24 11:34 12/29/24 11:34 12/29/24 11:34 12/29/24 11:34
I&O
12/28/24 12/29/24 12/30/24
06:59 06:59 06:59
Intake Total 480 / 480 600 / 600
Output Total 1800 / 1800 1250 / 1250
Balance -1320 / -1320 -650 / -650
Physical Exam
-
General: No Apparent Distress
HEENT: Normocephalic
GI: Soft, Nontender and Nondistended
Neuro: Awake, Alert and Oriented
Psych: Apparent Dementia
[2024-12-29] MEDS: ROCEPHIN IV (12:15)
[2024-12-29] MEDS: STERILE WATER FOR INJECTION IV (12:15)
--- NOTE | 2024-12-29 12:30 | PHA.VAN.IN ---
Assessment
- Assessment
Renal Function: Unknown baseline
Concomitant Antimicrobials: cefepime
AUC Dosing Plan
- Dosing Variables
Dosing Weight (kg): 64
Dosing CrCl (ml/min): 51
Vd coefficient (L/kg): 0.7
- Empiric Dosing
Maintenance Regimen: Vanc 750mg Q24H - first dose now then 0600 in lieu of load
Estimated AUC (mcg*h/mL): 419
Estimated Peak (mcg*h/mL): 26.8
Estimated Trough (mcg/ml): 10.5
Estimated Half Life (H): 14.8
- Monitoring
No levels ordered at this time: consider levels in next few days
Pharmacokinetics Vancomycin I
- -
Patient Age: 84
Patient Sex: Male
Vancomycin Day #: 1
Indication: Pulmonary/Respiratory
Requesting Provider: Dr. Wall
Pertinent Antimicrobial Allergies:
NKDA
Height / Weight:
Height 5 ft 6 in
Actual Weight 64.41 kg
Pertinent Past Medical History: DM
- Vital Signs / Lab Results
Temp Pulse Resp BP Pulse Ox
97.4 F 65 20 154/71 97
12/29/24 11:34 12/29/24 11:34 12/29/24 11:34 12/29/24 11:34 12/29/24 11:34
Lab Results - Hematology
12/27/24 12/28/24
09: 07:00
WBC 16.9 H 15.9 H
Band Neutrophils 12 H 13 H
Lab Results - Chemistry
12/27/24 12/28/24
09:28 06:59
BUN 34 H 29 H
Creatinine 1.2 1.0
Estimated Creat Clear 51
Albumin 4.1 3.1 L
12/27/24 12/27/24
10:54 13:54
Lactic Acid 2.1 H 1.1
Lab Results - Urine
12/27/24
09:28
Urine Nitrite (Reflex) Negative
Leukocyte Esterase Rfl 2+ A
Urine WBC (Reflex) 30-40 A
Ur Squamous Epith Cells 26-30
Urine Bacteria (Reflex) Many A
Microbiology Results
12/27/24 10:55 Blood Culture - Preliminary
Blood/Venous No Growth in 48 hours- Final report to follow
12/27/24 10:54 Blood Culture - Preliminary
Blood/Venous No Growth in 48 hours- Final report to follow
12/27/24 16:12 MRSA Screen - Final
Nose Staph aureus MRSA
12/27/24 09:28 Urine Culture - Final
Urine
12/27/24 09:28 Legionella Urinary Antigen - Final
Urine Negative for Legionella pneumophila Serogroup 1 antigen.
A negative result does not rule out the possiblity of
Legionella infection due to other serogroups or species of
Legionella. Clinical correlation is recommended.
Streptococcus pneumoniae Antigen (M - Final
Negative for Streptococcus pneumoniae antigen.
A negative result does not exclude infection with
Streptococcus pneumoniae. Clinical correlation is
recommended.
12/27/24 09:28 Influenza Types A & B ([place]) - Final
Nasal Swab Negative for Influenza A & B, NAAT
Negative results must be combined with clinical observations
and patient history.
Nucleic Acid Amplification test (NAAT)performed on the
[employer] platform.
[2024-12-29] MEDS: MAXIPIME 2000 MG IV (12:41)
[2024-12-29] MEDS: STERILE WATER FOR INJECTION 10 ML IV (12:42)
[2024-12-29] MEDS: VANCOCIN 150 IV (12:53)
--- NOTE | 2024-12-29 16:38 | PTCARENOTE ---
Received patient this am AAOX1. Pt turned an repositioned. Tolerated diet, pt needs to be fed. Pt offered no complaints. Made patient comfortable. Report called to [facility] RN an patient moved.
[2024-12-29] MEDS: MELATONIN 3 MG PO (21:54)
[2024-12-30] VITALS (8 sets, daily range): BP systolic 113–178; BP diastolic 60–79; PULSE 81; O2SAT 96
[2024-12-30] MEDS: STERILE WATER FOR INJECTION 10 ML IV ×2 (00:05→13:02)
[2024-12-30] MEDS: MAXIPIME 2000 MG IV ×2 (00:05→13:04)
[2024-12-30] MEDS: HEPARIN 5000 UNITS SC ×3 (00:05→18:46)
[2024-12-30 04:35] LABS: Glucose - Point of Care 114 mg/dl (70-99)
[2024-12-30] MEDS: VANCOCIN 150 IV (05:55)
[2024-12-30 08:00] LABS: Glucose - Point of Care 118 mg/dl (70-99)
[2024-12-30 09:04] LABS: % Basophils 0.2 % (0-2); % Eosinophils 0.5 % (0-6); % Immature Granulocytes 0.7 % (0-0.5); % Lymphocytes 9.8 % (20.5-51.1); % Monocytes 11.6 % (1.7-9.3); % Neutrophils 77.2 % (42.2-75.2); Absolute Eosinophils 0.1 10^3/uL (0-0.7); Absolute Immature Granulocytes 0.1 10^3/uL (0-0.05); Absolute Lymphocytes 1.4 10^3/uL (1.2-3.4); Absolute Monocytes 1.6 10^3/uL (0.1-0.6); Absolute Neutrophils 10.6 10^3/uL (1.4-6.5); Hematocrit 31.9 % (39.0-52.0); Hemoglobin 10.6 g/dL (13.0-18.0); Mean Corp Hgb Conc. 33.2 g/dL (33.0-37.0); Mean Corpuscular Hgb 32.2 pg (27.0-31.0); Mean Platelet Volume 11.4 fL (7.4-10.4); Nucleated Red Blood Cells % 0 % (-); Platelet Count 241 10^3/uL (130-400); Red Blood Cell Count 3.29 10^6/uL (4.70-6.10); Red Cell Dist. Width 14.8 % (11.5-14.5); White Blood Cell Count 13.8 10^3/uL (4.8-10.8)
[2024-12-30 09:11] LABS: ALT (SGPT) 10 U/L (0-50); AST (SGOT) 18 U/L (17-59); Albumin 2.7 g/dl (3.5-5.0); Alkaline Phosphatase 111 U/L (38-126); Blood Urea Nitrogen 26 mg/dl (9-20); Calcium 8.7 mg/dl (8.4-10.2); Carbon Dioxide 34 mmol/L (22-30); Chloride 102 mmol/L (98-107); Estimated Creatinine Clearance 56 ml/min; Glucose 117 mg/dl (70-99); Potassium 3.6 mmol/L (3.5-5.1); Sodium 138 mmol/L (135-145); Total Bilirubin 0.7 mg/dl (0.2-1.3); Total Protein 4.9 g/dl (6.3-8.2); eGFR > 60.00
--- NOTE | 2024-12-30 09:36 | PHA.VAN.FU ---
Vancomycin Assessment / Plan
- Assessment
Renal Function: Stable
WBC's are: Trending Down
In the past 24 hrs, patient has been: Afebrile
Concomitant Antimicrobials: cefepime
- Dosing Plan
Continue: Vanc 750mg Q24H
- Monitoring Plan
No level(s) ordered at this time: consider levels in next few days
- Follow Up
Pharmacy will continue to follow.
Vancomycin Follow UP
- -
Patient Age: 84
Patient Sex: Male
Vancomycin Day #: 2
Indication: Pulmonary/Respiratory
Requesting Provider: Dr. Wall
Pertinent Antimicrobial Allergies:
NKDA
Height / Weight:
Height 5 ft 6 in
Actual Weight 64.41 kg
Pertinent Past Medical History: DM
- Vital Signs / Lab Results
Temp Pulse Resp BP Pulse Ox
98.0 F 83 18 145/76 96
12/30/24 07:15 12/30/24 07:15 12/30/24 07:15 12/30/24 07:15 12/30/24 07:15
Lab Results - Hematology
12/27/24 12/28/24 12/30/24
09:28 07:00 08:22
WBC 16.9 H 15.9 H 13.8 H
Band Neutrophils 12 H 13 H
Lab Results - Chemistry
12/27/24 12/28/24 12/30/24
09:28 06:59 08:22
BUN 34 H 29 H 26 H
Creatinine 1.2 1.0 0.9
Estimated Creat Clear 51 56
Albumin 4.1 3.1 L 2.7 L
12/27/24 12/27/24
10:54 13:54
Lactic Acid 2.1 H 1.1
Microbiology Results
12/27/24 10:55 Blood Culture - Preliminary
Blood/Venous No Growth in 48 hours- Final report to follow
12/27/24 10:54 Blood Culture - Preliminary
Blood/Venous No Growth in 48 hours- Final report to follow
12/27/24 16:12 MRSA Screen - Final
Nose Staph aureus MRSA
12/27/24 09:28 Urine Culture - Final
Urine
[2024-12-30] MEDS: NOVOLOG FLEXPEN-LOW RESISTANCE SC ×2 (10:09→17:35)
[2024-12-30] MEDS: DESENEX/MITRAZOL/ZEASORB 1 APPLIC TOPICAL ×2 (10:09→20:17)
[2024-12-30] MEDS: LIPITOR 10 MG PO (10:10)
[2024-12-30] MEDS: FEOSOL 325 MG PO (10:10)
[2024-12-30] MEDS: LOW STRENGTH ASPIRIN 81 MG PO (10:10)
[2024-12-30] MEDS: JANUVIA 50 MG PO (10:10)
[2024-12-30] MEDS: ZYLOPRIM 300 MG PO (10:10)
[2024-12-30] MEDS: MIRALAX 17 GRAMS PO (10:11)
[2024-12-30 12:04] LABS: Glucose - Point of Care 160 mg/dl (70-99)
--- NOTE | 2024-12-30 12:09 | W.PN.HOSP.TC ---
Today's Communication/Plan
-
Cont Abx
PT/OT
Discussed with daughter
Assessment / Plan
Assessment / Plan
84yo M with PMHx of CAD s/p CABG, HLD, gout, DEVIN, DM, lewy body dementia, recurrent constipation camefrom [facility] with worsening AMS, weakness and hypoxia, found pneumonia. UTI ruled out. Switched Abx on 12/30/24 and leukocytosis improving,
will plan 5-7 days total.
A/P:
#Acute toxic metabolic encephalopathy 2/2 UTI vs pneumonia
#Acute hypoxic insufficiency
#Sepsis on admission
legionella and S.pneumonia urinary Ag neg
Check sputum Cx if possible
Gentle hydration while cleared by speech
Rocephin/Doxy escalated to Cefepime/Vanco on 12/29/24 2/2 persistent bandemia after 48h of Abx
Ucx mixed justin
Bcx NTD
CT abd/pelvis
watch for urinary retention
wean off O2
COVID-19 and Influenza PCR neg
CT abd/pelvis: nonobstructing right renal calculi, small right-sided urinary bladder diverticulum. Probable b/l hydro (due to acute urinary retention)
#Elevated troponin 2/2 non-ischemic myocardial injury
#CAD s/p CABG
ASA, statin
most likely infection related
Echo: EF 55%, Normal regional wall motion
card consult: no concern for ACS
serial trop
#Acute urinary retention
Khan
#Ambulatory deficiency
PT/OT
#Lewy Body dementia
frequent reorientation
#DM type 2 with neuropathy
Insulin SS, accuchecks, DM diet
hold januvia
#DEVIN
#Gout
#Chronic constipation
#Hx of prostate CA
#PVD
cont home meds
DVT ppx hep
DNR/DNI as confirmed with daughter over the phone
I have spent at least 58min reviewing chart, test results, communication with consultants and family and providing direct patient care
Anticipated Discharge: > 48 hours
Subjective/Interval History
-
Date of Service: December 30, 2024
Objective Data
-
Labs:
Laboratory Results
12/30/24
08:22
WBC 13.8 H
Hgb 10.6 L
Hct 31.9 L
Plt Count 241 D
Sodium 138
Potassium 3.6
Chloride 102
Carbon Dioxide 34 H
BUN 26 H
Creatinine 0.9
Glucose 117 H
Calcium 8.7
Total Bilirubin 0.7
AST 18
ALT 10
Alkaline Phosphatase 111
Vital Signs:
Vital Signs
Temp Pulse Resp BP Pulse Ox
97.7 F 82 18 130/60 95
12/30/24 11:30 12/30/24 11:30 12/30/24 11:30 12/30/24 11:30 12/30/24 11:30
I&O
12/29/24 12/30/24 12/31/24
06:59 06:59 06:59
Intake Total 600 / 600 120 / 120
Output Total 1250 / 1250 350 / 350 550 / 550
Balance -650 / -650 -230 / -230 -550 / -550
Review of Systems
-
Unable to obtain full review of systems at this time due to: Dementia
History Source: Patient
Physical Exam
-
General: No Apparent Distress
Respiratory: Clear to Auscultation
Cardiac: Regular Rhythm
Neuro: Awake and Alert
Psych: Calm and Apparent Dementia
[2024-12-30] MEDS: NOVOLOG FLEXPEN-LOW RESISTANCE 1 UNITS SC (13:02)
--- NOTE | 2024-12-30 13:46 | CM ---
CM reviewed chart, discussed with Jessica in Admissions at [facility]- patient is LTC resident on a bed hold. Per facility, patient is AOx1, WC level, set up for feeding, 1 person assist for transfers. Patient PCP Avel Ma, pharmacy [facility]
in [place]. Patient on IV antibiotics. Referral placed to [facility] in [facility]. CM will continue to follow for all discharge planning needs.
Plan; return to [facility] when stable
[2024-12-30 14:54] LABS: Erythrocyte Sed Rate 63 mm/hour (0-20)
[2024-12-30 17:03] LABS: Glucose - Point of Care 132 mg/dl (70-99)
[2024-12-30 21:25] LABS: Glucose - Point of Care 137 mg/dl (70-99)
[2024-12-30] MEDS: MELATONIN 3 MG PO (22:23)
[2024-12-31] MEDS: MAXIPIME 2000 MG IV ×3 (00:12→23:01)
[2024-12-31] MEDS: STERILE WATER FOR INJECTION 10 ML IV ×3 (00:12→23:02)
[2024-12-31] MEDS: HEPARIN 5000 UNITS SC ×4 (00:12→23:01)
[2024-12-31 03:23] VITALS: BP 168/76
[2024-12-31] MEDS: VANCOCIN 150 IV (05:29)
[2024-12-31 07:43] LABS: % Basophils 0.4 % (0-2); % Eosinophils 2.5 % (0-6); % Immature Granulocytes 0.9 % (0-0.5); % Lymphocytes 11.8 % (20.5-51.1); % Monocytes 13.8 % (1.7-9.3); % Neutrophils 70.6 % (42.2-75.2); Absolute Basophils 0.1 10^3/uL (0-0.2); Absolute Eosinophils 0.3 10^3/uL (0-0.7); Absolute Immature Granulocytes 0.1 10^3/uL (0-0.05); Absolute Lymphocytes 1.4 10^3/uL (1.2-3.4); Absolute Monocytes 1.6 10^3/uL (0.1-0.6); Absolute Neutrophils 8.1 10^3/uL (1.4-6.5); Hematocrit 31.3 % (39.0-52.0); Hemoglobin 10.3 g/dL (13.0-18.0); Mean Corp Hgb Conc. 32.9 g/dL (33.0-37.0); Mean Corpuscular Hgb 32.1 pg (27.0-31.0); Mean Corpuscular Volume 97.5 fL (80.0-94.0); Mean Platelet Volume 11.4 fL (7.4-10.4); Nucleated Red Blood Cells % 0 % (-); Platelet Count 249 10^3/uL (130-400); Red Blood Cell Count 3.21 10^6/uL (4.70-6.10); White Blood Cell Count 11.4 10^3/uL (4.8-10.8)
[2024-12-31 07:57] VITALS: BP 149/67
[2024-12-31 08:06] LABS: Glucose - Point of Care 97 mg/dl (70-99)
[2024-12-31] MEDS: NOVOLOG FLEXPEN-LOW RESISTANCE SC ×2 (08:31→15:47)
[2024-12-31] MEDS: LIPITOR 10 MG PO (08:32)
[2024-12-31] MEDS: MIRALAX 17 GRAMS PO (08:32)
[2024-12-31] MEDS: JANUVIA 50 MG PO (08:32)
[2024-12-31] MEDS: ZYLOPRIM 300 MG PO (08:32)
[2024-12-31] MEDS: LOW STRENGTH ASPIRIN 81 MG PO (08:32)
[2024-12-31] MEDS: FEOSOL 325 MG PO (08:33)
[2024-12-31] MEDS: DESENEX/MITRAZOL/ZEASORB 1 APPLIC TOPICAL ×2 (08:33→21:43)
--- NOTE | 2024-12-31 11:09 | W.PN.HOSP.TC ---
Today's Communication/Plan
-
cont Abx
Assessment / Plan
Assessment / Plan
84yo M with PMHx of CAD s/p CABG, HLD, gout, DEVIN, DM, lewy body dementia, recurrent constipation came from [facility] with worsening AMS, weakness and hypoxia, found pneumonia. UTI ruled out. Switched Abx on 12/30/24 and leukocytosis improving,
will plan 5-7 days total.
A/P:
#Acute toxic metabolic encephalopathy 2/2 UTI vs pneumonia
#Acute hypoxic insufficiency
#Sepsis on admission
legionella and S.pneumonia urinary Ag neg
Check sputum Cx if possible
Gentle hydration while cleared by speech
Rocephin/Doxy escalated to Cefepime/Vanco on 12/29/24 2/2 persistent bandemia after 48h of Abx
Ucx mixed justin
Bcx NTD
CT abd/pelvis
watch for urinary retention
wean off O2
COVID-19 and Influenza PCR neg
CT abd/pelvis: nonobstructing right renal calculi, small right-sided urinary bladder diverticulum. Probable b/l hydro (due to acute urinary retention)
#Elevated troponin 2/2 non-ischemic myocardial injury
#CAD s/p CABG
ASA, statin
most likely infection related
Echo: EF 55%, Normal regional wall motion
card consult: no concern for ACS
serial trop
#Acute urinary retention
Khan
#Ambulatory deficiency
PT/OT
#Lewy Body dementia
frequent reorientation
#DM type 2 with neuropathy
Insulin SS, accuchecks, DM diet
hold januvia
#DEVIN
#Gout
#Chronic constipation
#Hx of prostate CA
#PVD
cont home meds
DVT ppx hep
DNR/DNI as confirmed with daughter over the phone
I have spent at least 58min reviewing chart, test results, communication with consultants and family and providing direct patient care
Anticipated Discharge: 24 - 48 hours
Subjective/Interval History
-
Date of Service: December 31, 2024
Objective Data
-
Labs:
Laboratory Results
12/31/24
07:13
WBC 11.4 H
Hgb 10.3 L
Hct 31.3 L
Plt Count 249
Vital Signs:
Vital Signs
Temp Pulse Resp BP Pulse Ox
98.0 F 79 18 149/67 95
12/31/24 07:57 12/31/24 07:57 12/31/24 07:57 12/31/24 07:57 12/31/24 07:57
I&O
12/30/24 12/31/24 01/01/25
06:59 06:59 06:59
Intake Total 120 / 120 1360 / 1360
Output Total 350 / 350 1350 / 1350
Balance -230 / -230
Review of Systems
-
Unable to obtain full review of systems at this time due to: Dementia
History Source: Patient
Physical Exam
-
General: Comfortable
HEENT: Normocephalic
Respiratory: Clear to Auscultation
Cardiac: Regular Rhythm
GI: Soft, Nontender and Nondistended
Genito-urinary: Clear Urine and Khan
Musculoskeletal: No Clubbing, No Cyanosis and No Edema
Neuro: Awake, Alert and Slurred Speech (chronic)
Psych: Calm
[2024-12-31 11:25] VITALS: BP 136/66
[2024-12-31 11:38] LABS: Glucose - Point of Care 381 mg/dl (70-99)
--- NOTE | 2024-12-31 11:55 | CM ---
Chart reviewed and case briefer met with patient this am and patient to return to [facility] when stable.
[facility]
Report [phone]
[2024-12-31] MEDS: NOVOLOG FLEXPEN-LOW RESISTANCE 5 UNITS SC (12:59)
--- NOTE | 2024-12-31 14:42 | PHA.VAN.FU ---
Vancomycin Assessment / Plan
- Assessment
Renal Function: No New Labs Today
Concomitant Antimicrobials: cefepime
- Dosing Plan
Continue: Vanc 750mg Q24H
- Monitoring Plan
No level(s) ordered at this time: consider levels in next few days
- Follow Up
Pharmacy will continue to follow.
Vancomycin Follow UP
- -
Patient Age: 84
Patient Sex: Male
Vancomycin Day #: 3
Indication: Pulmonary/Respiratory
Requesting Provider: Dr. Wall
Pertinent Antimicrobial Allergies:
NKDA
Height / Weight:
Height 5 ft 6 in
Actual Weight 64.41 kg
Pertinent Past Medical History: DM
- Vital Signs / Lab Results
Temp Pulse Resp BP Pulse Ox
97.5 F 79 18 136/66 99
12/31/24 11:25 12/31/24 11:25 12/31/24 11:25 12/31/24 11:25 12/31/24 11:25
Lab Results - Hematology
12/30/24 12/31/24
08:22 07:13
WBC 13.8 H 11.4 H
Lab Results - Chemistry
12/30/24
08:22
BUN 26 H
Creatinine 0.9
Estimated Creat Clear 56
Albumin 2.7 L
Microbiology Results
12/27/24 10:54 Blood Culture - Preliminary
Blood/Venous No Growth in 4 days- Final report to follow
12/27/24 10:55 Blood Culture - Preliminary
Blood/Venous No Growth in 4 days- Final report to follow
[2024-12-31 15:02] VITALS: BP 141/59
[2024-12-31 15:48] LABS: Glucose - Point of Care 108 mg/dl (70-99)
[2024-12-31] MEDS: MELATONIN 3 MG PO (22:38)
[2024-12-31 22:45] LABS: Glucose - Point of Care 91 mg/dl (70-99)
[2024-12-31 23:00] VITALS: BP 163/77
[2025-01-01] VITALS: BP 140/70
--- NOTE | 2025-01-01 05:00 | PTCARENOTE ---
Patient confused but pleasant. Needs verbal prompts often. Bed alarm in use. Increased hourly rounds.
[2025-01-01] MEDS: VANCOCIN 150 IV (05:08)
[2025-01-01 07:18] LABS: % Basophils 0.6 % (0-2); % Eosinophils 4.1 % (0-6); % Immature Granulocytes 1.3 % (0-0.5); % Lymphocytes 11.4 % (20.5-51.1); % Monocytes 12.8 % (1.7-9.3); % Neutrophils 69.8 % (42.2-75.2); Absolute Basophils 0.1 10^3/uL (0-0.2); Absolute Eosinophils 0.5 10^3/uL (0-0.7); Absolute Immature Granulocytes 0.1 10^3/uL (0-0.05); Absolute Lymphocytes 1.2 10^3/uL (1.2-3.4); Absolute Monocytes 1.4 10^3/uL (0.1-0.6); Absolute Neutrophils 7.6 10^3/uL (1.4-6.5); Hematocrit 31.9 % (39.0-52.0); Hemoglobin 10.7 g/dL (13.0-18.0); Mean Corp Hgb Conc. 33.5 g/dL (33.0-37.0); Mean Corpuscular Hgb 32.2 pg (27.0-31.0); Mean Corpuscular Volume 96.1 fL (80.0-94.0); Nucleated Red Blood Cells % 0 % (-); Platelet Count 273 10^3/uL (130-400); Red Blood Cell Count 3.32 10^6/uL (4.70-6.10); Red Cell Dist. Width 14.6 % (11.5-14.5); White Blood Cell Count 10.9 10^3/uL (4.8-10.8)
[2025-01-01 07:31] LABS: Blood Urea Nitrogen 31 mg/dl (9-20); Calcium 8.5 mg/dl (8.4-10.2); Carbon Dioxide 36 mmol/L (22-30); Chloride 99 mmol/L (98-107); Estimated Creatinine Clearance 56 ml/min; Glucose 98 mg/dl (70-99); Potassium 3.2 mmol/L (3.5-5.1); Sodium 137 mmol/L (135-145); eGFR > 60.00
[2025-01-01] MEDS: LIPITOR 10 MG PO (08:19)
[2025-01-01] MEDS: JANUVIA 50 MG PO (08:19)
[2025-01-01] MEDS: ZYLOPRIM 300 MG PO (08:19)
[2025-01-01] MEDS: LOW STRENGTH ASPIRIN 81 MG PO (08:19)
[2025-01-01] MEDS: FEOSOL 325 MG PO (08:19)
[2025-01-01] MEDS: HEPARIN 5000 UNITS SC ×3 (08:19→23:19)
[2025-01-01] MEDS: DESENEX/MITRAZOL/ZEASORB 1 APPLIC TOPICAL ×2 (08:20→19:33)
[2025-01-01] MEDS: MIRALAX PO (08:20)
[2025-01-01 08:28] LABS: Glucose - Point of Care 103 mg/dl (70-99)
[2025-01-01] MEDS: NOVOLOG FLEXPEN-LOW RESISTANCE SC ×2 (08:28→16:29)
[2025-01-01 08:58] VITALS: BP 156/67
[2025-01-01 09:28] LABS: Magnesium 2.1 mg/dl (1.6-2.3)
--- NOTE | 2025-01-01 10:14 | PHA.VAN.FU ---
Vancomycin Assessment / Plan
- Assessment
Renal Function: Stable
WBC's are: Trending Down
In the past 24 hrs, patient has been: Afebrile
Concomitant Antimicrobials: cefepime
- Dosing Plan
Continue: vancomycin 750 mg q24h
- Monitoring Plan
Peak Level: 01/02 830
Trough Level: 01/03 530
- Follow Up
Pharmacy will continue to follow.
Vancomycin Follow UP
- -
Patient Age: 84
Patient Sex: Male
Vancomycin Day #: 4
Indication: Pulmonary/Respiratory
Requesting Provider: Dr. Wall
Pertinent Antimicrobial Allergies:
NKDA
Height / Weight:
Height 5 ft 6 in
Actual Weight 64.41 kg
Pertinent Past Medical History: DM
- Vital Signs / Lab Results
Temp Pulse Resp BP Pulse Ox
97.4 F 70 20 156/67 97
01/01/25 08:58 01/01/25 08:58 01/01/25 08:58 01/01/25 08:58 01/01/25 08:58
Lab Results - Hematology
12/30/24 12/31/24 01/01/25
08:22 07:13 06:53
WBC 13.8 H 11.4 H 10.9 H
Lab Results - Chemistry
12/30/24 01/01/25
08:22 06:53
BUN 26 H 31 H
Creatinine 0.9 0.9
Estimated Creat Clear 56 56
Albumin 2.7 L
Microbiology Results
12/27/24 10:54 Blood Culture - Preliminary
Blood/Venous No Growth in 4 days- Final report to follow
12/27/24 10:55 Blood Culture - Preliminary
Blood/Venous No Growth in 4 days- Final report to follow
[2025-01-01] MEDS: MAXIPIME 2000 MG IV ×2 (11:35→23:20)
[2025-01-01] MEDS: KCL 40 MEQ PO (11:35)
[2025-01-01] MEDS: STERILE WATER FOR INJECTION 10 ML IV ×2 (11:36→23:20)
--- NOTE | 2025-01-01 12:24 | W.PN.HOSP.TC ---
Today's Communication/Plan
-
cont Abx
replete potassium
Assessment / Plan
Assessment / Plan
84yo M with PMHx of CAD s/p CABG, HLD, gout, DEVIN, DM, lewy body dementia, recurrent constipation came from [facility] with worsening AMS, weakness and hypoxia, found pneumonia. UTI ruled out. Switched Abx on 12/30/24 and leukocytosis improving,
will plan 5-7 days total.
A/P:
#Acute toxic metabolic encephalopathy 2/2 UTI vs pneumonia
#Acute hypoxic insufficiency
#Sepsis on admission
legionella and S.pneumonia urinary Ag neg
Check sputum Cx if possible
Gentle hydration while cleared by speech
Rocephin/Doxy escalated to Cefepime/Vanco (MRSA positive) on 12/29/24 2/2 persistent bandemia after 48h of Abx, plan to continue for 5 days total
Ucx mixed justin
Bcx NTD
CT abd/pelvis
wean off O2
COVID-19 and Influenza PCR neg
CT abd/pelvis: nonobstructing right renal calculi, small right-sided urinary bladder diverticulum. Probable b/l hydro (due to acute urinary retention)
#Elevated troponin 2/2 non-ischemic myocardial injury
#CAD s/p CABG
ASA, statin
most likely infection related
Echo: EF 55%, Normal regional wall motion
card consult: no concern for ACS
serial trop
#Acute urinary retention
Khan
#Ambulatory deficiency
PT/OT: anticipate return to [facility] upon d/c
#Lewy Body dementia
frequent reorientation
#DM type 2 with neuropathy
Insulin SS, accuchecks, DM diet
hold januvia
#DEVIN
#Gout
#Chronic constipation
#Hx of prostate CA
#PVD
cont home meds
DVT ppx hep
DNR/DNI as confirmed with daughter over the phone
I have spent at least 38min reviewing chart, test results, communication with consultants and family and providing direct patient care
Anticipated Discharge: 24 - 48 hours
Subjective/Interval History
-
Date of Service: January 01, 2025
Objective Data
-
Labs:
Laboratory Results
01/01/25
06:53
WBC 10.9 H
Hgb 10.7 L
Hct 31.9 L
Plt Count 273
Sodium 137
Potassium 3.2 L
Chloride 99
Carbon Dioxide 36 H
BUN 31 H
Creatinine 0.9
Glucose 98
Calcium 8.5
Vital Signs:
Vital Signs
Temp Pulse Resp BP Pulse Ox
97.4 F 70 20 156/67 97
01/01/25 08:58 01/01/25 08:58 01/01/25 08:58 01/01/25 08:58 01/01/25 08:58
I&O
12/31/24 01/01/25 01/02/25
06:59 06:59 06:59
Intake Total 1360 / 1360 960 / 960
Output Total 1350 / 1350 500 / 500
Balance 460 / 460
Review of Systems
-
Unable to obtain full review of systems at this time due to: Dementia
History Source: Patient
Physical Exam
-
General: No Apparent Distress
Respiratory: Clear to Auscultation
Cardiac: Regular Rhythm
GI: Soft, Nontender and Nondistended
Neuro: Awake and Alert
Psych: Confused and Apparent Dementia
[2025-01-01 13:48] LABS: Glucose - Point of Care 184 mg/dl (70-99)
[2025-01-01] MEDS: NOVOLOG FLEXPEN-LOW RESISTANCE 1 UNITS SC (14:26)
[2025-01-01 16:00] VITALS: BP 164/77
[2025-01-01 16:31] LABS: Glucose - Point of Care 126 mg/dl (70-99)
[2025-01-01 22:06] LABS: Glucose - Point of Care 125 mg/dl (70-99)
[2025-01-01] MEDS: MELATONIN 3 MG PO (22:18)
[2025-01-01 23:00] VITALS: BP 162/80
[2025-01-01 23:30] VITALS: BP 142/70
[2025-01-02] MEDS: VANCOCIN 150 IV (05:49)
[2025-01-02 07:26] LABS: Glucose - Point of Care 111 mg/dl (70-99)
[2025-01-02] MEDS: NOVOLOG FLEXPEN-LOW RESISTANCE SC ×2 (08:13→16:58)
[2025-01-02] MEDS: LIPITOR 10 MG PO (08:19)
[2025-01-02] MEDS: ZYLOPRIM 300 MG PO (08:19)
[2025-01-02] MEDS: FEOSOL 325 MG PO (08:19)
[2025-01-02] MEDS: LOW STRENGTH ASPIRIN 81 MG PO (08:19)
[2025-01-02] MEDS: JANUVIA 50 MG PO (08:19)
[2025-01-02] MEDS: MIRALAX PO (08:19)
[2025-01-02] MEDS: HEPARIN 5000 UNITS SC (08:20)
[2025-01-02] MEDS: DESENEX/MITRAZOL/ZEASORB 1 APPLIC TOPICAL ×2 (08:20→19:49)
[2025-01-02 08:38] VITALS: BP 152/83
[2025-01-02 08:42] LABS: % Basophils 0.5 % (0-2); % Immature Granulocytes 1.9 % (0-0.5); % Lymphocytes 13.2 % (20.5-51.1); % Monocytes 13.7 % (1.7-9.3); % Neutrophils 67.7 % (42.2-75.2); Absolute Basophils 0.1 10^3/uL (0-0.2); Absolute Eosinophils 0.3 10^3/uL (0-0.7); Absolute Immature Granulocytes 0.2 10^3/uL (0-0.05); Absolute Lymphocytes 1.3 10^3/uL (1.2-3.4); Absolute Monocytes 1.4 10^3/uL (0.1-0.6); Absolute Neutrophils 6.9 10^3/uL (1.4-6.5); Hematocrit 32.7 % (39.0-52.0); Hemoglobin 11.2 g/dL (13.0-18.0); Mean Corp Hgb Conc. 34.3 g/dL (33.0-37.0); Mean Corpuscular Hgb 32.1 pg (27.0-31.0); Mean Corpuscular Volume 93.7 fL (80.0-94.0); Mean Platelet Volume 10.7 fL (7.4-10.4); Nucleated Red Blood Cells % 0 % (-); Platelet Count 321 10^3/uL (130-400); Red Blood Cell Count 3.49 10^6/uL (4.70-6.10); Red Cell Dist. Width 14.5 % (11.5-14.5); White Blood Cell Count 10.1 10^3/uL (4.8-10.8)
[2025-01-02 09:08] LABS: Blood Urea Nitrogen 30 mg/dl (9-20); Calcium 8.6 mg/dl (8.4-10.2); Carbon Dioxide 37 mmol/L (22-30); Chloride 101 mmol/L (98-107); Estimated Creatinine Clearance 63 ml/min; Glucose 114 mg/dl (70-99); Potassium 3.9 mmol/L (3.5-5.1); Sodium 140 mmol/L (135-145); eGFR > 60.00
[2025-01-02 09:14] LABS: Vancomycin Peak 16.5 ug/ml (18-26)
--- NOTE | 2025-01-02 10:40 | PHA.VAN.FU ---
Vancomycin Assessment / Plan
- Assessment
Renal Function: Stable
WBC's are: Trending Down (WNL)
In the past 24 hrs, patient has been: Afebrile
Concomitant Antimicrobials: cefepime
- Assessment - Therapeutic Drug Monitoring
Extrapolated Cmin (mcg/mL): 16.5
Trough Drawn: Appropriately
Levels were drawn: At steady state
vanc peak lower than anticipated; will await trough scheduled for 01/03 AM
- Monitoring Plan
Trough Level: 01/03 0530
- Follow Up
Pharmacy will continue to follow.
Vancomycin Follow UP
- -
Patient Age: 84
Patient Sex: Male
Vancomycin Day #: 5
Indication: Pulmonary/Respiratory
Requesting Provider: Dr. Wall
Pertinent Antimicrobial Allergies:
NKDA
Height / Weight:
Height 5 ft 6 in
Actual Weight 64.41 kg
Pertinent Past Medical History: DM
- Vital Signs / Lab Results
Temp Pulse Resp BP Pulse Ox
97.4 F 68 20 152/83 100
01/02/25 08:38 01/02/25 08:38 01/02/25 08:38 01/02/25 08:38 01/02/25 08:38
Lab Results - Hematology
12/31/24 01/01/25 01/02/25
07:13 06:53 08:32
WBC 11.4 H 10.9 H 10.1
Lab Results - Chemistry
01/01/25 01/02/25
06:53 08:32
BUN 31 H 30 H
Creatinine 0.9 0.8
Estimated Creat Clear 56 63
Microbiology Results
12/27/24 10:55 Blood Culture - Final
Blood/Venous No Growth - Final Report
12/27/24 10:54 Blood Culture - Final
Blood/Venous No Growth - Final Report
Therapeutic Drug Monitoring
Vancomycin Peak 16.5 ug/ml (18-26) L 01/02/25 08:32
--- NOTE | 2025-01-02 11:23 | W.PN.HOSP.TC ---
Today's Communication/Plan
-
cont abx
Assessment / Plan
Assessment / Plan
84yo M with PMHx of CAD s/p CABG, HLD, gout, DEVIN, DM, lewy body dementia, recurrent constipation came from [facility] with worsening AMS, weakness and hypoxia, found pneumonia. UTI ruled out. Switched Abx on 12/30/24 and leukocytosis improving,
will plan 5 days total.
A/P:
#Acute toxic metabolic encephalopathy 2/2 UTI vs pneumonia
#Acute hypoxic insufficiency
#Sepsis on admission
legionella and S.pneumonia urinary Ag neg
Check sputum Cx if possible
Gentle hydration while cleared by speech
Rocephin/Doxy escalated to Cefepime/Vanco (MRSA positive) on 12/29/24 2/2 persistent bandemia after 48h of Abx, plan to continue for 5 days total
Ucx mixed justin
Bcx NTD
wean off O2
COVID-19 and Influenza PCR neg
CT abd/pelvis: nonobstructing right renal calculi, small right-sided urinary bladder diverticulum. Probable b/l hydro (due to acute urinary retention)
#Elevated troponin 2/2 non-ischemic myocardial injury
#CAD s/p CABG
ASA, statin
most likely infection related
Echo: EF 55%, Normal regional wall motion
card consult: no concern for ACS
serial trop
#Acute urinary retention
Khan
#Ambulatory deficiency
PT/OT: anticipate return to [facility] upon d/c
#Lewy Body dementia
frequent reorientation
#DM type 2 with neuropathy
Insulin SS, accuchecks, DM diet
hold januvia
#Non-obstructing nephrolithiasis
#small right-sided urinary bladder diverticulum
outpatient urology
#DEVIN
#Gout
#Chronic constipation
#Hx of prostate CA
#PVD
cont home meds
DVT ppx hep
DNR/DNI as confirmed with daughter over the phone
I have spent at least 38min reviewing chart, test results, communication with consultants and family and providing direct patient care
Anticipated Discharge: Within 24 hours
Subjective/Interval History
-
Date of Service: January 02, 2025
Objective Data
-
Labs:
Laboratory Results
01/02/25
08:32
WBC 10.1
Hgb 11.2 L
Hct 32.7 L
Plt Count 321
Sodium 140
Potassium 3.9
Chloride 101
Carbon Dioxide 37 H
BUN 30 H
Creatinine 0.8
Glucose 114 H
Calcium 8.6
Vital Signs:
Vital Signs
Temp Pulse Resp BP Pulse Ox
97.4 F 68 20 152/83 100
01/02/25 08:38 01/02/25 08:38 01/02/25 08:38 01/02/25 08:38 01/02/25 08:38
I&O
01/01/25 01/02/25 01/03/25
06:59 06:59 06:59
Intake Total 960 / 960 480 / 480
Output Total 500 / 500 350 / 350
Balance 460 / 460 130 / 130
Review of Systems
-
Unable to obtain full review of systems at this time due to: Dementia
History Source: Patient
All other systems: Reviewed and negative
Physical Exam
-
General: Comfortable
HEENT: Normocephalic
Respiratory: Clear to Auscultation
GI: Soft, Nontender and Nondistended
Musculoskeletal: No Clubbing, No Cyanosis and No Edema
Neuro: Awake, Alert and Oriented
Psych: Calm and Apparent Dementia
[2025-01-02] MEDS: MAXIPIME 2000 MG IV (12:11)
[2025-01-02] MEDS: STERILE WATER FOR INJECTION 10 ML IV (12:12)
[2025-01-02 12:52] LABS: Glucose - Point of Care 503 mg/dl (70-99)
[2025-01-02 13:34] LABS: Glucose 176 mg/dl (70-99)
[2025-01-02] MEDS: NOVOLOG FLEXPEN-LOW RESISTANCE 1 UNITS SC (14:09)
[2025-01-02] MEDS: HEPARIN SC (15:42)
[2025-01-02 16:30] VITALS: BP 178/86
[2025-01-02 16:37] LABS: Glucose - Point of Care 98 mg/dl (70-99)
[2025-01-02 21:40] LABS: Glucose - Point of Care 123 mg/dl (70-99)
[2025-01-02 22:40] VITALS: BP 181/84
[2025-01-02] MEDS: MELATONIN PO (22:43)
[2025-01-02 23:32] VITALS: BP 180/70
[2025-01-03] MEDS: HEPARIN 5000 UNITS SC ×2 (00:15→09:11)
[2025-01-03] MEDS: MAXIPIME 2000 MG IV ×2 (00:16→12:18)
[2025-01-03] MEDS: STERILE WATER FOR INJECTION 10 ML IV ×2 (00:16→12:17)
[2025-01-03] MEDS: APRESOLINE 5 MG IV (00:18)
[2025-01-03 05:26] VITALS: BP 130/80
[2025-01-03] MEDS: VANCOCIN 150 IV (05:49)
[2025-01-03 06:40] LABS: Blood Urea Nitrogen 29 mg/dl (9-20); Calcium 8.8 mg/dl (8.4-10.2); Carbon Dioxide 37 mmol/L (22-30); Chloride 100 mmol/L (98-107); Estimated Creatinine Clearance 56 ml/min; Glucose 122 mg/dl (70-99); Potassium 4.2 mmol/L (3.5-5.1); Sodium 139 mmol/L (135-145); eGFR > 60.00
[2025-01-03 07:05] LABS: Vancomycin Trough 9.5 ug/ml (5-20)
[2025-01-03 07:35] VITALS: BP 151/76
[2025-01-03 08:32] LABS: Glucose - Point of Care 110 mg/dl (70-99)
--- NOTE | 2025-01-03 08:52 | PHA.VAN.FU ---
Addendum entered and electronically signed by Bria Booker [facility] 01/03/25 08:57:
Vanc 1000mg predicts AUC 421, peak 23.3, trough 12.8 using patient-specific PK
Original Note:
Vancomycin Assessment / Plan
- Assessment
Renal Function: Stable
WBC's are: WNL
In the past 24 hrs, patient has been: Afebrile
Concomitant Antimicrobials: cefepime
- Assessment - Therapeutic Drug Monitoring
Extrapolated Cmax (mcg/mL): 17.3
Peak level was drawn: Appropriately (drawn ~1.7H after end of previous infusion)
Extrapolated Cmin (mcg/mL): 9.5
Trough Drawn: Appropriately
Levels were drawn: At steady state (levels drawn after 5th maintenance dose)
Calculated AUC (mcg*h/mL): 312
Calculated ke: 0.026
Calculated half life (H): 26.6
Calculated Vd (L): 92 (~1.4 L/kg)
Calculated Vanc CL (ml/min): 40
- Dosing Plan
Adjust Regimen to: Vanc 1000mg Q24H
- Monitoring Plan
No level(s) ordered at this time: consider levels in next few days to re-assess half-life
- Follow Up
Pharmacy will continue to follow.
Vancomycin Follow UP
- -
Patient Age: 84
Patient Sex: Male
Vancomycin Day #: 6
Indication: Pulmonary/Respiratory
Requesting Provider: Dr. Wall
Pertinent Antimicrobial Allergies:
NKDA
Height / Weight:
Height 5 ft 6 in
Actual Weight 64.41 kg
Pertinent Past Medical History: DM
- Vital Signs / Lab Results
Temp Pulse Resp BP Pulse Ox
97.5 F 73 20 151/76 97
01/03/25 07:35 01/03/25 07:35 01/03/25 07:35 01/03/25 07:35 01/03/25 07:35
Lab Results - Hematology
01/01/25 01/02/25
06:53 08:32
WBC 10.9 H 10.1
Lab Results - Chemistry
01/01/25 01/02/25 01/03/25
06:53 08:32 05:44
BUN 31 H 30 H 29 H
Creatinine 0.9 0.8 0.9
Estimated Creat Clear 56 63 56
Microbiology Results
12/27/24 10:55 Blood Culture - Final
Blood/Venous No Growth - Final Report
12/27/24 10:54 Blood Culture - Final
Blood/Venous No Growth - Final Report
Therapeutic Drug Monitoring
Vancomycin Peak 16.5 ug/ml (18-26) L 01/02/25 08:32
Vancomycin Trough 9.5 ug/ml (5-20) 01/03/25 05:44
[2025-01-03] MEDS: NOVOLOG FLEXPEN-LOW RESISTANCE SC ×2 (09:07→12:17)
[2025-01-03] MEDS: ZYLOPRIM 300 MG PO (09:10)
[2025-01-03] MEDS: LIPITOR 10 MG PO (09:10)
[2025-01-03] MEDS: JANUVIA 50 MG PO (09:10)
[2025-01-03] MEDS: LOW STRENGTH ASPIRIN 81 MG PO (09:10)
[2025-01-03] MEDS: MIRALAX 17 GRAMS PO (09:11)
[2025-01-03] MEDS: FEOSOL 325 MG PO (09:11)
[2025-01-03] MEDS: DESENEX/MITRAZOL/ZEASORB 1 APPLIC TOPICAL (09:20)
--- NOTE | 2025-01-03 10:53 | W.PN.HOSP.TC ---
Today's Communication/Plan
-
completed abx course
f/u pcp and labs within the week
f/u urology outpt
Assessment / Plan
Assessment / Plan
84yo M with PMHx of CAD s/p CABG, HLD, gout, DEVIN, DM, lewy body dementia, recurrent constipation came from [facility] with worsening AMS, weakness and hypoxia, found pneumonia. UTI ruled out. Switched Abx on 12/30/24 and leukocytosis improving,
will plan 5 days total.
A/P:
#Acute toxic metabolic encephalopathy 2/2 UTI vs pneumonia
#Acute hypoxic insufficiency
#Sepsis on admission
legionella and S.pneumonia urinary Ag neg
MRSA positive
Rocephin/Doxy escalated to Cefepime/Vanco (MRSA positive) on 12/29/24 2/2 persistent bandemia after 48h of Abx, plan to continue for 5 days total - completed 5 days cefepime/vanc
Ucx mixed justin
Bcx NTD
wean off O2
COVID-19 and Influenza PCR neg
CT abd/pelvis: nonobstructing right renal calculi, small right-sided urinary bladder diverticulum. Probable b/l hydro (due to acute urinary retention)
#Elevated troponin 2/2 non-ischemic myocardial injury
#CAD s/p CABG
ASA, statin
most likely infection related
Echo: EF 55%, Normal regional wall motion
card consult: no concern for ACS
#Acute urinary retention
#small right-sided urinary bladder diverticulum
Khan
-f/u urology outpt
#Ambulatory deficiency
PT/OT: anticipate return to [facility] upon d/c
#Lewy Body dementia
frequent reorientation
#DM type 2 with neuropathy
Insulin SS, accuchecks, DM diet
hold januvia
#Non-obstructing nephrolithiasis
#small right-sided urinary bladder diverticulum
outpatient urology
#DEVIN
#Gout
#Chronic constipation
#Hx of prostate CA
#PVD
cont home meds
DVT ppx hep
DNR/DNI as confirmed with daughter over the phone
More than 30 minutes spent in discharge including
Final examination of the patient
Summarizing hospital stay
Instructions for continuing care to all relevant caregivers
Preparation of discharge records, prescriptions, and referral forms
Total time spent (37 in minutes):
Anticipated Discharge: Today
Subjective/Interval History
-
Date of Service: January 03, 2025
No acute events, on room air
Objective Data
-
Labs:
Laboratory Results
01/03/25
05:44
Sodium 139
Potassium 4.2
Chloride 100
Carbon Dioxide 37 H
BUN 29 H
Creatinine 0.9
Glucose 122 H
Calcium 8.8
Vital Signs:
Vital Signs
Temp Pulse Resp BP Pulse Ox
97.5 F 73 20 151/76 97
01/03/25 07:35 01/03/25 07:35 01/03/25 07:35 01/03/25 07:35 01/03/25 07:35
I&O
01/02/25 01/03/25 01/04/25
06:59 06:59 06:59
Intake Total 480 / 480 630 / 630
Output Total 350 / 350 300 / 300
Balance 130 / 130 330 / 330
Review of Systems
-
History Source: Patient
All other systems: Not reviewed unless documented
Physical Exam
-
General: Comfortable
HEENT: Normocephalic
Respiratory: Clear to Auscultation
GI: Soft, Nontender and Nondistended
Musculoskeletal: No Clubbing, No Cyanosis and No Edema
Neuro: Awake, Alert and Oriented
Psych: Calm and Apparent Dementia
Data Reviewed
-
CT Scan: Report Reviewed by me
Labs: Labs Reviewed by me
--- NOTE | 2025-01-03 11:06 | W.DS.TRANS ---
DC Summary - Field Observer
-
Discharge Instructions:
Discharge Diagnosis/Procedures Acute toxic metabolic encephalopathy 2/2
pneumonia
#Acute hypoxic insufficiency
#Sepsis
Diet Diabetic, Carb Controlled,Low Cholesterol,Low
Fat
Activity As tolerated
Driving Restrictions No driving
Blood Work cbc and bmp in 3-5 days with pcp
Others Tests possible chest imaging as per pcp in 4-6 weeks
to assess for resolution of lung findings
Instructions:
Stand-Alone Forms:
Changes to Home Medications: Yes
Discharge Medications:
DC Medications w/original date entered in [employer]
acetaminophen 325 mg tablet 325 mg PO Q8HPRN PRN mild pain 12/27/24
allopurinol 300 mg tablet 300 mg PO DAILY Gout 12/27/24
aspirin 81 mg chewable tablet 81 mg PO DAILY Blood Clot Prevention/Tx 12/27/24
atorvastatin 10 mg tablet 10 mg PO DAILY High Cholesterol 12/27/24
bisacodyl 10 mg rectal suppository 10 mg [place] DAILY PRN constip, if MOM ineffective 12/27/24
cholecalciferol (vitamin D3) 25 mcg (1,000 unit) tablet (Vitamin D3) 25 mcg PO DAILY Supplement 12/27/24
cyanocobalamin (vitamin B-12) 1,000 mcg tablet (Vitamin B-12) 1,000 mcg PO DAILY Supplement 12/27/24
ferrous sulfate 325 mg (65 mg iron) tablet (iron) 325 mg PO DAILY Supplement 12/27/24
lidocaine 4 % topical gel 1 applic topical Q8HPRN PRN neck pain 12/27/24
loperamide 2 mg capsule 2 mg PO Q6HPRN PRN loose stools 12/27/24
magnesium hydroxide 400 mg/5 mL oral suspension (Milk of Magnesia) 2,400 mg PO HS PRN no BM x 3 days 12/27/24
melatonin 3 mg tablet 3 mg PO HS Sleep 12/27/24
polyethylene glycol 3350 17 gram oral powder packet (Miralax) 17 g PO DAILY Constipation 12/27/24
sitagliptin phosphate 50 mg tablet (Januvia) 50 mg PO DAILY Diabetes 12/27/24
miconazole nitrate 2 % topical powder (Miconazorb AF) 1 applic topical BID #0 grams 01/03/25
Home Medication Changes
miconazole nitrate 2 % topical powder (Miconazorb AF) 1 applic topical BID #0 grams 01/03/25
Pending Results: No
--- NOTE | 2025-01-03 11:19 | CM ---
CM reviewed chart, patient seen bedside, discussed return to [facility], scheduled for 1:00 p.m. CM placed call to patients daughterAstrid, discussed transport time and reviewed IMM, agreeable to discharge, form placed in chart. CM sent updates
to [facility] through [facility]. CM will continue to follow for all discharge planning needs.
Plan; return to [facility], 1:00 p.m. ambulance transport
[facility]
Report [phone]
[2025-01-03 12:18] LABS: Glucose - Point of Care 129 mg/dl (70-99)
[2025-01-03 12:49] VITALS: BP 144/74
== END 2025-01-03 13:37 | DRG 871 ==
LOC: 4 WEST ACU 13:35
PROVIDERS: Physician Assistant; ADMITTING PHYSICIAN Internal Medicine; ATTENDING PHYSICIAN Internal Medicine; CONSULT PHYSICIAN Student in an Organized Health Care Education/Training Program; EMERGENCY PHYSICIAN Emergency Medicine; FAMILY PHYSICIAN Internal Medicine
DX: A41.9 Sepsis, unspecified organism (principal); G92.8 Other toxic encephalopathy; J18.9 Pneumonia, unspecified organism; I5A Non-ischemic myocardial injury (non-traumatic); E87.20 Acidosis, unspecified; R09.02 Hypoxemia; E11.51 Type 2 diabetes mellitus with diabetic peripheral angiopathy without gangrene; I25.10 Atherosclerotic heart disease of native coronary artery without angina pectoris; Z95.1 Presence of aortocoronary bypass graft; E78.00 Pure hypercholesterolemia, unspecified; K59.09 Other constipation; G31.83 Neurocognitive disorder with Lewy bodies; F02.80 Dementia in other diseases classified elsewhere, unspecified severity, without behavioral disturbance, psychotic disturbance, mood disturbance, and anxiety; M10.9 Gout, unspecified; Z79.82 Long term (current) use of aspirin; Z11.52 Encounter for screening for COVID-19; Z66 Do not resuscitate; I44.30 Unspecified atrioventricular block; Z79.899 Other long term (current) drug therapy; Z85.46 Personal history of malignant neoplasm of prostate; D50.9 Iron deficiency anemia, unspecified; I10 Essential (primary) hypertension; N20.0 Calculus of kidney; N32.3 Diverticulum of bladder
CPT/HCPCS: 51701; 71045; 74176; 80048; 80053; 80202; 81003; 81015; 82947; 82962; 83036; 83605; 83735; 83880; 84484; 85025; 85652; 87040; 87070; 87086; 87147; 87449; 87502; 87811; 87899; 92526; 92610; 93005; 93306; 96361; 96365; 96375; 97162; 97167; 97530; 99285

== ENCOUNTER 2025-10-25 14:36 | Inpatient (IN) | payer MEDICARE, OTHER, SELFPAY ==
[2025-10-25] VITALS (15 sets, daily range): BP systolic 95–141; BP diastolic 49–89; PULSE 2–88; BMI 17.4; BMI 17.1
--- NOTE | 2025-10-25 10:12 | ED.GENMED ---
History of Present Illness
General
Chief Complaint: Fever
Time Seen by Provider: 10/25/25 10:06
Nursing documentation reviewed up to this point in time: agreed with
History of Present Illness
History of Present Illness:
85-year-old male brought to the ER by EMS from detention for further evaluation of altered mental status with fever. Patient has a history of Lewy body dementia and is typically confused at baseline. He is however able to hold a conversation
and able to feed himself. Patient is currently nonverbal and unable to provide any history. I was able to speak with the patient's daughter, Astrid, shortly after patient arrival to discuss recent events. He patient has been confused since this
weekend. No specific symptoms other than poor appetite. I reviewed his advance directive with her as detention did not send this along in the paperwork, he is DNR/DNI, however they would be interested in IV fluids, antibiotics but no further
aggressive treatments.
Review of Systems
Review of Systems
Allergies reviewed?: Yes
Phy Exam
Physical Exam
Physical Exam:
Patient is somnolent, mouth agape, responsive to painful stimuli, cachectic, frail, head is NCAT, PERRL, EOMI mucous membranes dry, conjunctiva pink, heart regular rate and rhythm without murmurs or ectopy, lungs are clear to auscultation without
wheezes rales or rhonchi, no JVD, abdomen is soft and nontender on palpation, extremities without edema, moving all extremities spontaneously, globally weak, not following command, GCS 6 ([id number])
Sepsis
Sepsis Screening
Sepsis Assessment: Severe Sepsis
Sepsis Screening: ARF-Creatinine >2.0 and Worsening O2 Saturation
Sepsis Screen
Sepsis Screen: Severe Sepsis
Date: 10/25/25
Time: 15:32
Course
Orders/Labs/Results
Orders:
Orders
10/25/25 10:06
IV Insert/Care/Rem.- Treatment PRN
0.9% Sodium Chloride 1000 ml [Nss] 2,000 ml IV NOW STA
Acetaminophen [Tylenol/Feverall] 650 mg RECTAL NOW STA
Pulse Ox/cont/shift [RESP] Urgent
Quantity: 1
10/25/25 10:07
Electrocardiogram (*1) Urgent
Reason for Study: Other
Other Reason for Exam: sepsis
EKG- Treatment ONCE
CR Chest Portable - 1 View Urgent
Comment:
Reason For Exam: fever
Reason Study Needs to be Portable: Unable to Transport
10/25/25 10:08
Acetaminophen [Tylenol/Feverall] 650 mg .ROUTE .STK-MED ONE
10/25/25 10:10
Cefepime HCl [Maxipime] 2,000 mg IV NOW STA
10/25/25 10:18
Straight cath- Treatment ONCE
10/25/25 10:38
Vancomycin [Vancocin] 1,500 mg 0.9% Sodium Chloride 500 ml [Nss] 500 ml IV NOW
10/25/25 10:44
Complete Blood Count/With Diff Urgent
Comprehensive Metabolic Panel Urgent
Lactic Acid Q4H
Comment: CANCEL 2nd LACTIC ACID IF 1st LACTIC ACID IS LESS THAN 2
PTT Urgent
Prothrombin Time Urgent
Troponin I Urgent
Blood Culture Q30M
HARRIS Source: Blood/Venous
Specimen Description:
10/25/25 10:46
COVID-19 Antigen Urgent
Source: Nasal Swab
Urinalysis Reflex To Culture Urgent
Date Specimen was Collected: 10/25/25
Time Specimen was Collected: 10:19
Urine Microscopic Reflex Cult Urgent
Influenza A+B Rapid Molecular Urgent
HARRIS Source: Nasal Swab
Specimen Description:
Urine Culture Urgent
HARRIS Source: U
Specimen Description:
Date Specimen was Collected: 10/25/25
Time Specimen was Collected: 10:19
10/25/25 10:47
Blood Culture Q30M
HARRIS Source: Blood/Venous
Specimen Description:
10/25/25 11:34
Sterile Water [Sterile Water For Injection] 10 ml .ROUTE .STK-MED ONE
10/25/25 14:08
Admit/Transfer Patient As Directed
Co-Sign Provider:
Level of Care: Inpatient admission
Assign to:: Telemetry
Physician / Group: Liberty Stubbs
Transfer to: Telemetry
Diagnosis: Sepsis secondary to UTI
Reason for Telemetry: Other
Other Reason for Telemetry: elevated troponins
Date to Stop Telemetry: 10/27/25
Time to Stop Telemetry: 11:00
Reason for Hospitalization: sepsis secondary to UTI
acute kidney injury
metabolic encephalopathy
Expected length of stay greater than two midnights?: Yes
ELOS- Estimated Length of Stay in days: 3
I certify the patient meets the requirements for IP care: Yes
10/25/25 14:09
PRN Pain Medication Management As Directed
May give lesser potent ordered pain med per pt: Yes
preference::
Protocol:: Medication orders for pain may be administered in a
manner that supports deferring to patient preference
when the pt is:
- Requesting an ordered lesser potent pain medication.
Least to most potent pain medications are defined
as: acetaminophen < NSAID < tramadol < opioids
(morphine, oxycodone, hydromorphone).
- Requesting a lesser dose of the same medication IF
ORDERED.
- Requesting a less intrusive route of administration
if both routes are prescribed by the provider (PO <
IV).
10/25/25 14:14
Code Status As Directed
Resuscitation Status: Do not resuscitate
Reached after discussion with pt or family/Healthcare POA: Yes
10/25/25 14:15
DNR Bracelet Application ONCE
10/25/25 14:23
CT Head W/o Iv Contrast Urgent
Comment:
Reason For Exam: somnolence and AMS
10/27/25 11:00
DC Protocol for Telemetry ONCE
Abnormal Lab Results
10/25/25 10/25/25
10:44 10:46
WBC 17.3 H 10^3/uL
(4.8-10.8)
RBC 3.76 L 10^6/uL
(4.70-6.10)
Hgb 11.6 L g/dL
(13.0-18.0)
Hct 36.7 L %
(39.0-52.0)
MCV 97.6 H fL
(80.0-94.0)
MCHC 31.6 L g/dL
(33.0-37.0)
RDW 15.3 H %
(11.5-14.5)
MPV 11.9 H fL
(7.4-10.4)
Abs Immat Gran (auto) 0.2 H 10^3/uL
(0-0.05)
Absolute Neuts (auto) 14.1 H 10^3/uL
(1.4-6.5)
Absolute Monos (auto) 1.7 H 10^3/uL
(0.1-0.6)
Immature Gran % 1.2 H %
(0-0.5)
Neutrophils % 81.3 H %
(42.2-75.2)
Lymphocytes % 7.5 L %
(20.5-51.1)
Monocytes % 9.7 H %
(1.7-9.3)
PT 15.8 H Sec
(11.4-14.6)
APTT 39.1 H Sec
(23.4-35.0)
Sodium 148 H mmol/L
(135-145)
Potassium 5.3 H mmol/L
(3.5-5.1)
Chloride 112 H mmol/L
(98-107)
BUN 129 H* mg/dl
(9-20)
Creatinine 5.2 H* mg/dL
(0.7-1.3)
Glucose 200 H mg/dl
(70-99)
Alkaline Phosphatase 136 H U/L
(38-126)
Troponin I 0.525 H* ng/ml
Total Protein 5.9 L g/dl
(6.3-8.2)
Albumin 3.2 L g/dl
(3.5-5.0)
Ur Occult Blood Reflex 4+ A
(Negative)
Leukocyte Esterase Rfl 3+ A
(Negative)
Urine WBC (Reflex) 50-60 A /HPF
(0-5)
Urine Bacteria (Reflex) Many A
(Negative)
Urine Albumin (Reflex) 3+ A
(Neg - Trace)
10/25/25 10:44
10/25/25 10:44
Vital Signs
Initial and Last Documented VS:
Initial Vital Signs
Pulse Resp Pulse Ox
118 26 99
10/25/25 10:15 10/25/25 10:15 10/25/25 10:15
Last Documented Vital Signs
Temp Pulse Resp BP Pulse Ox
99 F 88 17 110/49 100
10/25/25 14:01 10/25/25 15:00 10/25/25 15:00 10/25/25 15:00 10/25/25 15:00
MDM/Problems Addressed
Differential Diagnosis Includes:
Differential diagnosis to consider but not limited to COVID, flu, dehydration, urinary tract infection along with other etiologies considered
Chronic conditions affecting care:
Dementia, cardiomyopathy, hypertension, hyperlipidemia, peripheral vascular disease, diabetes, anemia
*Radiology
Radiology exam reviewed: preliminary read by ED provider (I independently viewed and interpreted portable chest x-ray showing no infiltrate)
*Pulse Oximetry
SaO2: 98
Oxygen Mode of Delivery: Non-rebreather mask
Patient hypoxic: no
Comment: Patient transition to 12 L mid flow-his oxygen saturation was in the 70s per prehospital paramedics reflecting severe hypoxia
*EKG
Interpreted by ED Provider?: Yes (I independently viewed and interpreted twelve-lead EKG showing significant baseline artifact, likely first-degree AV block with tachycardic rhythm and PVCs at 119, leftward axis, no ST elevation, this is an abnormal
tracing which is nonspecific, new increased rate compared to prior 12/27/24)
*[employer] Conditioning Installer Interpretation
Rate: tachycardiac (I dependently viewed and interpreted rhythm strip showing tachycardia, occasional PVCs)
*Critical Care Note
Total Time (30-74mins, 75-104mins- exclusive of procedures): see note
comment:
Critical care statement: A total of 30 minutes of critical care time was provided for this patient. This includes management of unstable vital signs, evaluation of the patient at bedside, managing airway/oxygen utilization reviewing the patient's
pertinent medical records, discussion with consultants, review of old EKGs and review of pertinent medical records. This time with separate from time utilized to perform the aforementioned documented procedures
Update Note
Update Note:
IV fluid bolus ordered given clinical dehydration. Broad-spectrum antibiotics also ordered. Patient transition to mid flow nasal cannula at 12 L with persistent pulse ox greater than 95%. Patient also given rectal Tylenol for fever.
Patient with stable appearance, improvement in heart rate with IV fluid administration. I reviewed full patient presentation with the hospitalist who accepts patient for admission for further treatment of urosepsis with advanced dementia and
altered mental
ED Attending Note
-
Portions of this chart may have been created with voice recognition software.� Occasional wrong word or��sound alike� substitutions may have occurred due to the inherent limitations of voice recognition software.
Discharge Plan
Departure
Patient Disposition: Admit
Date of Disposition: 10/25/25
Time of Disposition: 11:47
Presentation/result/management discussed w/ accepting MD/DO: Hospitalist
Discharge Problem:
Urinary tract infection, Severe sepsis, Acute dehydration, Elevated troponin I level, Acute alteration in mental status, Acute kidney injury (nontraumatic), Acute hypoxemic respiratory failure
Interventions
Interventions:
*Risk Screen - Suicide Last Done: 10/25/25 10:21
*General Assessment Last Done: 10/25/25 10:21
*Neglect/Abuse Screening Last Done: 10/25/25 10:21
*ED COVID-19 Vaccine History Last Done: 10/25/25 10:21
*ED Influenza Vaccine History Last Done: 10/25/25 10:21
[facility] Fall Risk Assessment Tool Last Done: 10/25/25 10:21
ED- Neurological Assessment Last Done: 10/25/25 10:35
ED-Skin Assessment Last Done: 10/25/25 10:35
[2025-10-25] MEDS: TYLENOL/FEVERALL 650 MG RECTAL (10:31)
[2025-10-25] MEDS: NSS 2000 ML IV (10:32)
[2025-10-25 11:04] LABS: Hematocrit 36.7 % (39.0-52.0); Hemoglobin 11.6 g/dL (13.0-18.0); Mean Corp Hgb Conc. 31.6 g/dL (33.0-37.0); Mean Corpuscular Volume 97.6 fL (80.0-94.0); Nucleated Red Blood Cells % 0 % (-); Platelet Count 309 10^3/uL (130-400); Red Cell Dist. Width 15.3 % (11.5-14.5)
[2025-10-25 11:14] LABS: INR 1.25; PT 15.8 Sec (11.4-14.6)
[2025-10-25 11:15] LABS: APTT 39.1 Sec (23.4-35.0)
[2025-10-25 11:22] LABS: COVID-19 Antigen Negative (Negative); Urine Character Slightly Cloudy (Clear)
[2025-10-25 11:24] LABS: ALT (SGPT) 18 U/L (0-50); AST (SGOT) 25 U/L (17-59); Albumin 3.2 g/dl (3.5-5.0); Alkaline Phosphatase 136 U/L (38-126); Calcium 9.2 mg/dl (8.4-10.2); Carbon Dioxide 27 mmol/L (22-30); Chloride 112 mmol/L (98-107); Estimated Creatinine Clearance 8 ml/min; Glucose 200 mg/dl (70-99); Potassium 5.3 mmol/L (3.5-5.1); Sodium 148 mmol/L (135-145); Total Protein 5.9 g/dl (6.3-8.2); eGFR 10.26
[2025-10-25 11:31] LABS: Troponin I 0.525 ng/ml
[2025-10-25 11:33] LABS: Urine Red Blood Cell 0-2 /HPF (0-2); Urine Squamous Cell 0-2 /LPF (Few); Urine White Cell 50-60 /HPF (0-5)
[2025-10-25 11:36] LABS: Blood Urea Nitrogen 129 mg/dl (9-20)
[2025-10-25] MEDS: MAXIPIME 2000 MG IV (11:37)
[2025-10-25] MEDS: VANCOCIN 530 MG IV (11:38)
--- NOTE | 2025-10-25 14:56 | W.PN.UPDATE ---
Update Note
Progress Note Update
Seen and examined the patient agree with plan formulated by the resident. See changes in my documentation
85-year-old man from local snf, reportedly was doing well able to converse until Friday. He became more drowsy poor p.o. intake and not able to converse since Friday. History obtained from the daughter.
Patient very drowsy not able to arouse to Have a conversation
Pupils equal and reactive
Dry mucosa
Cardiovascular system S1-S2 appreciated
Chest decreased breath sounds bilateral
Abdomen soft and nontender
No pedal edema
Chronic skin thickening of the lower extremities
Patient is not cooperative for a neuroexam
Stage II to stage III sacral decubitus ulcer/deep tissue injury and also stage II ulcer on the right thigh posterior just below the buttock
Chest x-ray reviewed by me-no acute infiltrates
EKG reviewed by me-accelerated junctional rhythm, PVCs, left axis deviation
# TME
Check CT of the head
Likely secondary to dehydration/uremia/infection
# Sepsis-present on admission
Likely source is urine
Received IV fluids in the ER
Lactate is normal
Cultures obtained
Antibiotics- Cefepime and Vanco
CT of abdomen and pelvis with history of kidney stones
# Acute kidney injury-with mild hyperkalemia and hyponatremia
Possibly secondary to dehydration and poor p.o. intake
follow creatinine with IV fluids if not getting better will need nephrology evaluation
Bladder scan every 6 hours to rule out retention if patient has retention Khan catheter to be placed
Has an external catheter now
CT A/P given history of Stones.
# Elevated troponin
Likely non ischemic myocardial injury from sepsis
EKG noted
Follow troponins to trend
Echo ordered
Rectal aspirin
# Sacral Decub- Wound c are eval.
# Cardiomyopathy-unknown type
# Peripheral vascular disease
# Hyperlipidemia-hold atorvastatin as n.p.o.
# History of coronary disease-continue rectal aspirin.
# History of gout-hold allopurinol as n.p.o.
# Diabetes-hemoglobin [id number].Accu-Cheks and sliding scale coverage. Hold Januvia
# Lewy body dementia
# History of dysphagia-speech eval when patient is more awake and alert
# Ambulate dysfunction
# Hypoalbuminemia
# DVT prophylaxis-subcutaneous heparin
# DNR
Discussed with daughter Astrid in detail and updated. She is aware that patient is very sick at this point. Reviewed about CODE STATUS. Patient is DNR
Time spent ovr 75 min
Part of this note was created using voice recognition system. Occasional wrong word or��sound alike� substitutions may have inadvertently occurred due to the inherent limitations of voice recognition software. If noted kindly bring it to my
attention for correction.
--- NOTE | 2025-10-25 15:05 | W.PN.UPDATE ---
Update Note
Progress Note Update
Seen and examined the patient agree with plan formulated by the resident. See changes in my documentation
85-year-old man from local retirement, reportedly was doing well able to converse until Friday. He became more drowsy poor p.o. intake and not able to converse since Friday. History obtained from the daughter.
Patient very drowsy not able to arouse to Have a conversation
Pupils equal and reactive
Dry mucosa
Cardiovascular system S1-S2 appreciated
Chest decreased breath sounds bilateral
Abdomen soft and nontender
No pedal edema
Chronic skin thickening of the lower extremities
Patient is not cooperative for a neuroexam
Stage II to stage III sacral decubitus ulcer/deep tissue injury and also stage II ulcer on the right thigh posterior just below the buttock
Chest x-ray reviewed by me-no acute infiltrates
EKG reviewed by me-accelerated junctional rhythm, PVCs, left axis deviation
# TME
Check CT of the head
Likely secondary to dehydration/uremia/infection
# Sepsis-present on admission
Likely source is urine
Received IV fluids in the ER
Lactate is normal
Cultures obtained
Antibiotics
CT of abdomen and pelvis with history of kidney stones
# Acute kidney injury-with mild hyperkalemia and hyponatremia
Possibly secondary to dehydration and poor p.o. intake
follow creatinine with IV fluids if not getting better will need nephrology evaluation
Bladder scan every 6 hours to rule out retention if patient has retention Khan catheter to be placed
Has an external catheter now
# Elevated troponin
EKG noted
Follow troponins to trend
Echo-ordered.
Rectal aspirin
# Cardiomyopathy-unknown type
# Peripheral vascular disease
# Hyperlipidemia-hold atorvastatin as n.p.o.
# History of coronary disease-continue rectal aspirin.
# History of gout-hold allopurinol as n.p.o.
# Diabetes-hemoglobin [id number].Accu-Cheks and sliding scale coverage. Hold Novuvia
# Lewy body dementia
# History of dysphagia-speech eval when patient is more awake and alert
# Ambulate dysfunction
# Hypoalbuminemia
# DVT prophylaxis-subcutaneous heparin
# DNR
Discussed with daughter Astrid in detail and updated. She is aware that patient is very sick at this point. Reviewed about CODE STATUS. Patient is DNR
Time spent ovr 75 min
Part of this note was created using voice recognition system. Occasional wrong word or��sound alike� substitutions may have inadvertently occurred due to the inherent limitations of voice recognition software. If noted kindly bring it to my
attention for correction.
--- NOTE | 2025-10-25 15:29 | HPS.HSE ---
Family Physician
-
Family Physician: Kulwant Horowitz MD
Chief Complaint
-
Altered mental status
History of Present Illness
Patient is an 85-year-old male with PMH significant for Lewy body dementia, diabetes, hypertension, CAD, PVD, iron deficiency anemia, history of prostate cancer, gout who was brought to [facility] by EMS from long-term for altered mental status with
fever. Patient is currently nonverbal and unable to provide history. Per document conversations with patient's daughter, patient has been confused, unable to converse and had poor p.o. intake since this weekend.
In the ED, blood work notable for Cr of 5.2, WBC 17.3. Lactic acid 1.8. Troponins elevated to 0.525. Chest x-ray showed hypoaerated lungs without consolidation. No abnormal dilation of bowel loops visualized. Urinalysis revealed: 3+ leukocyte
esterase, 50-60 WBCs, many bacteria, 4+ blood, 3+ albumin. EKG revealed accelerated junctional rhythm, PVCs, left axis deviation. Blood cultures and urine cultures pending. Vancomycin and cefepime started in the ED. Patient started on 2 L of
normal saline. Patient will be admitted to telemetry for further workup of toxic metabolic encephalopathy and sepsis secondary to UTI.
Medical History
Past Medical History
Past Medical History: Reports CAD, Cancer (Prostate), Dementia (Lewy body), Hypercholesterolemia and NIDDM
Past Surgical History: Reports Cardiac
Social History
Unable to obtain full social history at this time due to: Acuity
Family History
Family History: Unable to Obtain
Allergies / Home Medications
Allergies reflects when Allergies were last updated in [facility].
Home Medications with original date entered in [facility]
Allergy/Medication List:
Allergies
Allergy/AdvReac Type Severity Reaction Status Date / Time
No Known Allergies Allergy Verified 12/27/24 09:22
Home Medications
acetaminophen 325 mg tablet 325 mg PO Q8HPRN PRN mild pain 12/27/24
allopurinol 300 mg tablet 300 mg PO DAILY Gout 12/27/24
aspirin 81 mg chewable tablet 81 mg PO DAILY Blood Clot Prevention/Tx 12/27/24
atorvastatin 10 mg tablet 10 mg PO DAILY High Cholesterol 12/27/24
bisacodyl 10 mg rectal suppository 10 mg AL DAILY PRN constip, if MOM ineffective 12/27/24
cholecalciferol (vitamin D3) 25 mcg (1,000 unit) tablet (Vitamin D3) 25 mcg PO DAILY Supplement 12/27/24
cyanocobalamin (vitamin B-12) 1,000 mcg tablet (Vitamin B-12) 1,000 mcg PO DAILY Supplement 12/27/24
ferrous sulfate 325 mg (65 mg iron) tablet (iron) 325 mg PO DAILY Supplement 12/27/24
lidocaine 4 % topical gel 1 applic topical Q8HPRN PRN neck pain 12/27/24
loperamide 2 mg capsule 2 mg PO Q6HPRN PRN loose stools 12/27/24
magnesium hydroxide 400 mg/5 mL oral suspension (Milk of Magnesia) 2,400 mg PO HS PRN no BM x 3 days 12/27/24
melatonin 3 mg tablet 3 mg PO HS Sleep 12/27/24
polyethylene glycol 3350 17 gram oral powder packet (Miralax) 17 g PO DAILY Constipation 12/27/24
sitagliptin phosphate 50 mg tablet (Januvia) 50 mg PO DAILY Diabetes 12/27/24
Review of Systems
-
Unable to obtain full review of systems at this time due to: Acuity
Physical Exam
Vital Signs
Vital Signs
Temp Pulse Resp BP Pulse Ox
99 F 88 17 110/49 100
10/25/25 14:01 10/25/25 15:00 10/25/25 15:00 10/25/25 15:00 10/25/25 15:00
Physical Exam
General: Appears Chronically Ill and Other (Not arousable)
Respiratory: Decreased Breath Sounds
Cardiac: S1/S2 and Regular Rhythm
GI: Soft, Non Tender and Non Distended
Genito-urinary: Other (Condom catheter in place)
Musculoskeletal: No Edema
Skin: Warm, Dry and Other (Sacral decubitus ulcer, ulcer on the right gluteal crease )
Neuro: Other (Unable to cooperate with neuroexam)
Laboratory Results
-
10/25/25 10:44
10/25/25 10:44
Laboratory Results
PT 15.8 Sec (11.4-14.6) H 10/25/25 10:44
INR 1.25 10/25/25 10:44
APTT 39.1 Sec (23.4-35.0) H 10/25/25 10:44
Lactic Acid Cancelled 10/25/25 14:15
Total Bilirubin 0.7 mg/dl (0.2-1.3) 10/25/25 10:44
AST 25 U/L (17-59) 10/25/25 10:44
ALT 18 U/L (0-50) 10/25/25 10:44
Alkaline Phosphatase 136 U/L (38-126) H 10/25/25 10:44
Troponin I 0.525 ng/ml H* 10/25/25 10:44
Impression/Plan
-
IMPRESSION:
Toxic metabolic encephalopathy
Sepsis secondary to UTI
Acute kidney injury
Elevated troponin
Peripheral vascular disease
Diabetes
History of dysphagia
History of gout
History of CAD
PLAN:
#Toxic metabolic encephalopathy
- CT noncontrast of head
- Likely secondary to dehydration, infection
#Sepsis
- Likely source is urine
- Patient received IV fluids in the ER
- Lactate is normal
- Blood and urine cultures obtained
- Started on broad-spectrum antibiotics: Vancomycin and cefepime
#Acute kidney injury
- Possibly due to dehydration
- Trend creatinine, repeat BMP tonight
- If not improving, will get nephrology consult tomorrow
- Bladder scan every 6 hours
- Condom catheter in place, will consider Khan if patient retaining
#Elevated troponin
- EKG revealed junctional rhythm, PVCs
- Trend troponin
- Echo ordered
- Rectal aspirin ordered
#Hyperlipidemia
- Holding home atorvastatin
#History of CAD
- Rectal aspirin
History of gout
- Hold allopurinol
- Diabetes
- Hemoglobin A1c pending
- Accu-Cheks
- Moderate sliding scale coverage
- Hold home Januvia
#History of dysphagia
- Speech eval placed for tomorrow when patient is more awake and alert
Diet�n.p.o.
DVT PPx�subcu heparin
DNR/DNI
--- NOTE | 2025-10-25 16:10 | PHA.VAN.IN ---
Assessment
- Assessment
Renal Function: SCR Appears Elevated from baseline
Concomitant Antimicrobials: CEFEPIME
Plan
- Plan
Initial / Loading Dose: VANCOMYCIN 1500 MG IV ~ 1130
Maintenance Regimen: Dosing by random level
Monitoring: A random level is scheduled on 10/26 0600 w. am labs. Pharmacy will follow.
Pharmacokinetics Vancomycin I
- -
Patient Age: 85
Patient Sex: Male
Vancomycin Day #: 1
Indication: Genito-Urinary Tract
Requesting Provider: Dr Renato Santamaria (Resident)
Height / Weight:
Height 5 ft 10 in
Actual Weight 54.2 kg
Pertinent Past Medical History: Diabetes pt w. LISBETH present w. fever likely source urine.
- Vital Signs / Lab Results
Temp Pulse Resp BP Pulse Ox
95.2 F L 96 16 141/76 94
10/25/25 15:58 10/25/25 15:58 10/25/25 15:58 10/25/25 15:58 10/25/25 15:58
Lab Results - Hematology
10/25/25
10:44
WBC 17.3 H
Lab Results - Chemistry
10/25/25
10:44
BUN 129 H*
Creatinine 5.2 H*
Estimated Creat Clear 8
Albumin 3.2 L
10/25/25 10/25/25
10:44 14:15
Lactic Acid 1.8 Cancelled
Lab Results - Urine
10/25/25
10:46
Urine Nitrite (Reflex) Negative
Leukocyte Esterase Rfl 3+ A
Urine WBC (Reflex) 50-60 A
Ur Squamous Epith Cells 0-2
Urine Bacteria (Reflex) Many A
Microbiology Results
10/25/25 10:46 Influenza Types A & B (FRANKLYN) - Final
Nasal Swab Negative for Influenza A & B, NAAT
Negative results must be combined with clinical observations
and patient history.
Nucleic Acid Amplification test (NAAT)performed on the
[employer] ID NOW platform.
[2025-10-25] MEDS: 0.45%NACL 1000 IV (16:28)
[2025-10-25] MEDS: ASPIRIN 300 MG RECTAL (16:33)
[2025-10-25 16:48] LABS: B.E. -7.2 mmol/L; HCO3 25.6 mmol/L (21-28); O2 Saturation % 98.9 % (94-98); PO2 101 mmHg (83-108)
[2025-10-25 16:54] LABS: PCO2 99 mmHg (35-48)
[2025-10-25 17:17] LABS: Glucose - Point of Care 181 mg/dl (70-99)
[2025-10-25 18:04] LABS: Glucose - Point of Care 209 mg/dl (70-99)
[2025-10-25] MEDS: NOVOLOG FLEXPEN-MODERATE RESISTANCE 3 UNITS SC (18:26)
--- NOTE | 2025-10-25 18:39 | PTCARENOTE ---
Patient arrived from [address] [place] [address] due to hypothermia, change in mental status and Bipap requirement. Patients temp 93.8 rectally upon arrival. Heating therapy initiated immediately. Patient is nonverbal. Unable to answer questions. Multiple wounds, wound
care consulted.
--- NOTE | 2025-10-25 20:00 | PTCARENOTE ---
Received pt from previous shift. Systems reviewed, see flowsheets. Pt on BiPAP, responsive to physical stimuli but not following commands. Pupils are 3mm brisk. Labs drawn and sent. Amairani hugger in place, rectal probe still reading temp <97F (goal).
Male purewick in place, no urine in canister. Bladder scanned for 81mL urine. LAC PIV with 0.45% NS infusing at 120mL/hr. Q2 turns maintained. SCDs in place. Orders for CT a/p, CTH, and ECHO noted.
[2025-10-25 20:08] LABS: Calcium 8.6 mg/dl (8.4-10.2); Carbon Dioxide 24 mmol/L (22-30); Chloride 115 mmol/L (98-107); Estimated Creatinine Clearance 9 ml/min; Glucose 164 mg/dl (70-99); Potassium 5.2 mmol/L (3.5-5.1); Sodium 147 mmol/L (135-145); eGFR 11.02
[2025-10-25 20:11] LABS: Troponin I 0.826 ng/ml; Troponin I 0.833 ng/ml
[2025-10-25 20:16] LABS: Blood Urea Nitrogen 133 mg/dl (9-20)
--- NOTE | 2025-10-25 22:35 | W.PN.UPDATE ---
Addendum entered and electronically signed by Liberty Stubbs MD 10/27/25 17:11:
Patient is underweight
Original Note:
Update Note
Progress Note Update
ABG obtained earlier noted to nhave Acute hypercarbic and Acute hypoxic resp failure
BIPAP placed.
CT Head no acute changes
CT A/P obstructing stone
IVF Urology eval requested
May need Cysto/Stent
Continue AB and fluids
Place cooepr
Continue to trend Trop
ECHO in am
Got asa. Hold off on AC as he may need procedure.
[2025-10-25] MEDS: FLAGYL 500 MG 100 IV (23:26)
--- NOTE | 2025-10-25 23:59 | W.PN.URO.CBU ---
Today's Communication / Plan
-
FAMILY DECIDING ON PERC VS CYSTO OR DNR
Assessment / Plan
-
SPOLE WIY=TH SAUGHER CONSIDERING OPTIONS EXPLAINED GRAVITY OF SITUATION AWAITNG DECISIOIN
Diagnosis
-
Date of Service: October 25, 2025
-
Patient Diagnosis:
sepsiswith LISBETH AND RT PROX URETERAL STOE
Post Op Day:
Subjective
-
SOMNOLENT
Objective
-
Vital Signs
Temp Pulse Resp BP Pulse Ox
97.2 F 89 18 118/73 96
10/25/25 23:20 10/25/25 23:30 10/25/25 23:30 10/25/25 23:00 10/25/25 22:30
Laboratory Results
10/25/25 10:44
10/25/25 19:27
Review of Systems
-
Unable to obtain full review of systems at this time due to: Dementia
Respiratory: Trouble Breathing
: Flank Pain
Physical Exam
-
General - well developed, well nourished, distressTOXIC
Chest - clear bilaterally
Abdomen - soft, non-tender, positive bowel sounds, no CVAT, no incisional pain or distention
Genitalia - normal
Rectal - normal
Skin - warm & dry with no rash
Neuro - AOx3, no motor deficits
Extremities - no clubbing, no cyanosis, no edema
Incision - clean, dry
Dressing - clean, dry, intact
Care Review
Data Reviewed
Discussed with: Hospitalist, Nursing and Family
CT Scan: Image Pers Reviewed
[2025-10-26] VITALS (15 sets, daily range): BP systolic 89–126; BP diastolic 53–83; PULSE 2–92; BMI 17.9
--- NOTE | 2025-10-26 | PTCARENOTE ---
Communicated results of CT a/p to House Provider. Orders received from Hospitalist to place cooper catheter. #16 fr cooper placed. Urology consulted. Urologist now at bedside and spoke with family about urgent need for OR. Awaiting family decision.
Received new orders for Flagyl. Maairani emy off. Pt now opening eyes and trying to make sounds. Agitated with care. Will continue to monitor.
[2025-10-26 00:08] LABS: Glucose - Point of Care 94 mg/dl (70-99)
[2025-10-26] MEDS: DULCOLAX 10 MG RECTAL (00:35)
--- NOTE | 2025-10-26 00:46 | W.PN.UPDATE ---
Update Note
Progress Note Update
-Recommendations received from Dr. Santos urologist after he discussed the condition with family to
-add IR consult for RT percutaneous nephrostomy tube placement in am.
-Hold heparin.
-NPO
[2025-10-26] MEDS: 0.45%NACL 1000 IV (02:53)
[2025-10-26 04:04] LABS: ALT (SGPT) 16 U/L (0-50); AST (SGOT) 28 U/L (17-59); Albumin 2.5 g/dl (3.5-5.0); Alkaline Phosphatase 110 U/L (38-126); Calcium 8.9 mg/dl (8.4-10.2); Carbon Dioxide 26 mmol/L (22-30); Chloride 115 mmol/L (98-107); Estimated Creatinine Clearance 9 ml/min; Glucose 109 mg/dl (70-99); Potassium 4.7 mmol/L (3.5-5.1); Sodium 149 mmol/L (135-145); Total Protein 4.9 g/dl (6.3-8.2); Troponin I 1.180 ng/ml; eGFR 10.76
[2025-10-26 04:06] LABS: Hematocrit 32.3 % (39.0-52.0); Hemoglobin 10.4 g/dL (13.0-18.0); Mean Corp Hgb Conc. 32.2 g/dL (33.0-37.0); Mean Corpuscular Volume 98.8 fL (80.0-94.0); Platelet Count 286 10^3/uL (130-400); Red Cell Dist. Width 15.6 % (11.5-14.5)
[2025-10-26 04:14] LABS: Blood Urea Nitrogen 135 mg/dl (9-20)
[2025-10-26 05:29] LABS: B.E. -6.5 mmol/L; HCO3 20.2 mmol/L (21-28); O2 Saturation % 100.0 % (94-98); PCO2 44 mmHg (35-48); PO2 158 mmHg (83-108)
[2025-10-26 05:45] LABS: Glucose - Point of Care 93 mg/dl (70-99)
[2025-10-26 06:07] LABS: Nucleated Red Blood Cells % 0 % (-)
[2025-10-26 08:04] LABS: Glycohemoglobin (HgbA1c) 6.6 % (4.0-5.9)
--- NOTE | 2025-10-26 08:19 | PTCARENOTE ---
Received report from night RN. Patient on BIPAP, settings adjust by respiratory therapists. BIPAP settings currently 18/5 10L. Khan draining yellow urine. Patient NPO overnight. Possible going to IR for drain placement. Family in room at
bedside. Emotional support provided.
[2025-10-26] MEDS: FLAGYL 500 MG 100 IV (08:40)
--- NOTE | 2025-10-26 08:45 | WOUNDNOTE ---
L HEEL (MEDIAL POSTERIOR)
--- NOTE | 2025-10-26 08:45 | WOUNDNOTE ---
R HEEL (POSTERIOR LATERAL)
--- NOTE | 2025-10-26 08:45 | WOUNDNOTE ---
ANKLES (NEAR FEET)(BILATERAL)
--- NOTE | 2025-10-26 10:50 | PTCARENOTE ---
Family has decided for hospice. Family in room at bedside. Waiting for other family members to arrive.
--- NOTE | 2025-10-26 10:58 | WOUNDNOTE ---
[facility] RN note: Patient admitted with sepsis secondary to UTI, poor po. Patient resides at [facility].
See H&P for complete history.
PMH: Lewy body dementia, NIDDM, HTN, CAD, PVD, anemia, prostate CA, gout.
Wound Location and type/assessment: Patient admitted with: Sacral DTI, L heel DTI, R heel DTI, bilateral ischial deep dermal stage 2 vs DTI, L lateral forefoot dermal laceration, bilateral anterior calf red abrasions, scrotal dermal small openings
d/t stool incontinence, moisture. R hip blanchable red.
Appetite: currently NPO. Patient very thin.
Pressure redistribution devices in place: Centrella Max air bed. Patient cannot turn self in bed. He bends he knees making heel off loading extremely difficult.
Plan: Patient incontinent of loose soft dark brown stool. Harmony care given by KETAN Salinas and KETAN Jensen. Silicone border foam changed on sacrum. Silicone border foam applied to bilateral ischiums. Patient turned to R semi side lying position with help
from KETAN Jensen. No sting barrier wipe applied to heels. KETAN Jensen to apply heel foam dressings and elevate patient's heels off bed. Patient high risk for additional or worsening of pressure injuries d/t overlay medical condition, PVD, poor po.
Will confirm orders with Dr. Stubbs.
Care plan to be updated.
Note to case management of equipment requested for discharge: Air mattress.
--- NOTE | 2025-10-26 11:07 | CM ---
I.A: Completed By NABEEL Nath
Patient lives at [facility] for 2 years LTC, uses wheelchair there. NABEEL Nath spoke to Hospitalist and family, the plan is Inpatient Hospice, patient is on continuos BIPAP. [facility] aware of this. PLAN: Inpatient Hospice.
[2025-10-26] MEDS: 0.45%NACL IV (11:20)
--- NOTE | 2025-10-26 11:30 | WOUNDNOTE ---
[facility] RN note: KETAN Jensen to apply bariatric air chair cushion at foot section of mattress to help off load heels. Camila stated patient is going on hospice. Obtained local wound care orders from Dr. Stubbs. Care plan and discharge instructions
updated. Will sign off.
--- NOTE | 2025-10-26 12:03 | RESPNOTE ---
pt removed from Bipap following inpatient hospice admission.
placed on 2L 02 via nasal cannula for comfort
family at bedside providing support.
--- NOTE | 2025-10-26 12:03 | CM ---
PLAN: Inpatient Hospice, [place] aware.
--- NOTE | 2025-10-26 12:52 | W.PN.URO.CBU ---
Today's Communication / Plan
-
hospice comfort measures
Assessment / Plan
-
understanding optiona and pt wished daughter Una and famity ecided on comfort meaures and hospice i agre
Diagnosis
-
Date of Service: October 26, 2025
-
Patient Diagnosis:
Post Op Day:
Patient Diagnosis:
sepsiswith LISBETH AND RT PROX URETERAL STOE
Post Op Day:
Subjective
-
non verbal but family at bedside decideon hospice
Objective
-
Vital Signs
Temp Pulse Resp BP Pulse Ox
97.7 F 87 16 102/61 99
10/26/25 11:30 10/26/25 10:30 10/26/25 10:30 10/26/25 10:00 10/26/25 10:30
Intake and Output
10/25/25 10/26/25 10/27/25
06:59 06:59 06:59
Intake Total 1900 / 1900
Output Total 150 / 150
Balance -150 / -150 1900 / 1900
Intake:
Oral fluids 0 / 0
IV fluids (Total) 1800 / 1800
IV piggybacks 100 / 100
Output:
Urine, Khan 150 / 150
Laboratory Results
10/26/25 03:17
10/26/25 03:17
Review of Systems
-
Unable to obtain full review of systems at this time due to: Patient Non-verbal
Respiratory: Trouble Breathing
Cardiac: Diaphoresis
Physical Exam
-
General - well developed, well nourished, no acute distress
Chest - clear bilaterally
Abdomen - soft, non-tender, positive bowel sounds, no CVAT, no incisional pain or distention
Genitalia - normal
Rectal - normal
Skin - warm & dry with no rash
Neuro - AOx3, no motor deficits
Extremities - no clubbing, no cyanosis, no edema
Incision - clean, dry
Dressing - clean, dry, intact
Counseling
-
comfort measures hspice
Care Review
Data Reviewed
Discussed with: Hospitalist, Nursing and Family
--- NOTE | 2025-10-26 13:23 | W.DCSUMMARY ---
Addendum entered and electronically signed by Liberty Stubbs MD 10/27/25 17:31:
Read, reviewed, and agree. See same day progress note for additional details.
Original Note:
Discharge Summary
Discharge Data
Date of Admission: 10/25/25
Date of Discharge: 10/26/25
-
Pending Results: No
Hospital Course
Patient is an 85-year-old male with PMH significant for Lewy body dementia, diabetes, hypertension, CAD, PVD, iron deficiency anemia, history of prostate cancer, gout who was brought to [facility] by EMS from [facility] for altered mental status with
fever. On arrival yesterday, patient was nonverbal and unable to provide history. In the ED, blood work was notable for Cr of 5.2, WBC 17.3. Lactic acid 1.8. Troponins elevated to 0.525. Chest x-ray showed hypoaerated lungs without consolidation.
No abnormal dilation of bowel loops visualized. Urinalysis revealed: 3+ leukocyte esterase, 50-60 WBCs, many bacteria, 4+ blood, 3+ albumin. EKG revealed accelerated junctional rhythm, PVCs, left axis deviation. Blood cultures and urine cultures
pending. Vancomycin and cefepime started in the ED. Patient started on fluids patient was admitted for further workup of toxic metabolic encephalopathy and sepsis secondary to UTI. Overnight patient was found to have a obstructing renal stone.
Urology was consulted and discussed possible options with the family.
Patients condition did not improve overnight.
Patient's and children have opted for comfort care for patient. Patient will be discharged to inpatient hospice.
Discharge Plan
-
Patient Disposition: Hospice - Inpatient [facility]
Discharge Orders:
Discharge Patient (As Directed); Ordered 10/26/25
Ordered By: Liberty Stubbs
Discharge Date and Time
Discharge Date/Time: 10/26/25 13:20
Print Language: UZBEK
--- NOTE | 2025-10-26 13:26 | W.PN.HOSP.TC ---
Today's Communication/Plan
-
- Patient will transition today to inpatient hospice
Assessment / Plan
Assessment / Plan
#Toxic metabolic encephalopathy
#Sepsis likely secondary to UTI
#LISBETH
#Nephrolithiasis
Urology was consulted overnight to discuss options for obstructing renal stone. Urology discussed possibility of percutaneous nephrostomy tube. However this morning, family decided to opt for comfort care and hospice. Hospice was consulted
paperwork was signed. Plan is to discharge patient in patient hospice.
Anticipated Discharge: Today
Subjective/Interval History
-
Date of Service: October 26, 2025
Objective Data
-
Labs:
Laboratory Results
10/26/25 10/26/25
03:17 05:17
WBC 16.4 H
Hgb 10.4 L
Hct 32.3 L
Plt Count 286
HCO3 20.2 L
Sodium 149 H
Potassium 4.7
Chloride 115 H
Carbon Dioxide 26
BUN 135 H*
Creatinine 5.0 H*
Glucose 109 H
Calcium 8.9
Total Bilirubin 0.5
AST 28
ALT 16
Alkaline Phosphatase 110
Vital Signs:
Vital Signs
Temp Pulse Resp BP Pulse Ox
97.7 F 87 16 102/61 99
10/26/25 11:30 10/26/25 10:30 10/26/25 10:30 10/26/25 10:00 10/26/25 10:30
I&O
10/25/25 10/26/25 10/27/25
06:59 06:59 06:59
Intake Total 1899
Output Total 150 / 150
Balance -150 / -150 1899
Physical Exam
-
General: Appears Chronically Ill
Respiratory: Decreased Breath Sounds
Cardiac: Regular Rhythm
GI: Soft, Nontender and Nondistended
Genito-urinary: Other (Khan catheter in place this morning)
Musculoskeletal: No Edema
Skin: Dry
Neuro: Other (Unable to cooperate with neuroexam)
Psych: Calm
--- NOTE | 2025-10-27 10:59 | PN.CDI ---
Addendum entered and electronically signed by Liberty Stubbs MD 10/27/25 17:10:
see my notes.
Original Note:
CDI
- -
CDI:
Physician Documentation Request
Admit Date: 10/25/25 14:36
Dear Doctor,
Please review the following and provide your response in the progress notes.
Clinical Indicators:
- Wound note indicates:
- Sacral DTI, POA
- Left heel DTI, POA
- Right heel DTI, POA
- Stage 2 b/l ischial pressure injury, POA
Physician documentation of the type and location of wounds is required for compliant documentation. Based on the above clinical findings and your assessment, please provide the following in your progress note:
1. Location of the ulcer/wound, including laterality.
2. Type (etiology) of ulcer/wound:
- Diabetic ulcer
- Arterial (ischemic) ulcer
- Traumatic wound
- Venous stasis ulcer
- Pressure (decubitus) ulcer
- Non-healing surgical wound
- Other
Use of terms such as suspected, likely, concern for, or probable (associated with a specific diagnosis that is being evaluated, monitored, or treated as if it exists) are acceptable and can be coded in the inpatient setting, when documented at the
time of discharge.
Thank you,
Marivel Cota RN
CDI Specialist
Please use your independent medical judgment in providing your response.
*Source: National Pressure Ulcer Advisory Panel (NPUAP)
--- NOTE | 2025-10-27 11:01 | PN.CDI ---
CDI
- -
CDI:
Physician Documentation Request
Admit Date: 10/25/25 14:36
Dear Doctor,
Please review the following and provide your response in the progress notes.
Clinical Indicators:
Height: 5'10
Weight: 125 lbs
BMI: 17.9
Other Clinical Notes: Sliver Former indicates underweight
If possible, please provide an associated diagnosis related to the abnormal BMI, such as:
Underweight
Cachectic
Other (please specify)
Use of terms such as suspected, likely, concern for, or probable (associated with a specific diagnosis that is being evaluated, monitored, or treated as if it exists) are acceptable and can be coded in the inpatient setting, when documented at the
time of discharge.
Thank you,
Marivel Cota RN
CDI Specialist
Please use your independent medical judgment in providing your response.
== END 2025-10-26 13:20 | disposition hospice, inpatient (51) | DRG 871 ==
LOC: IMU 14:36
PROVIDERS: ADMITTING PHYSICIAN Hospitalist; CONSULT PHYSICIAN Specialist; EMERGENCY PHYSICIAN Emergency Medicine; FAMILY PHYSICIAN Family Medicine
PROC: 5A09357 Assistance with Respiratory Ventilation, Less than 24 Consecutive Hours, Continuous Positive Airway Pressure (ICD-10-PCS; 2025-10-25)
DX: A41.9 Sepsis, unspecified organism (principal); G92.8 Other toxic encephalopathy; J96.01 Acute respiratory failure with hypoxia; N17.9 Acute kidney failure, unspecified; N39.0 Urinary tract infection, site not specified; Z68.1 Body mass index [BMI] 19.9 or less, adult; G31.83 Neurocognitive disorder with Lewy bodies; R65.20 Severe sepsis without septic shock; F02.80 Dementia in other diseases classified elsewhere, unspecified severity, without behavioral disturbance, psychotic disturbance, mood disturbance, and anxiety; Z66 Do not resuscitate; E86.0 Dehydration; I10 Essential (primary) hypertension; I25.10 Atherosclerotic heart disease of native coronary artery without angina pectoris; L89.892 Pressure ulcer of other site, stage 2; L89.152 Pressure ulcer of sacral region, stage 2; I49.3 Ventricular premature depolarization; N20.0 Calculus of kidney; Z11.52 Encounter for screening for COVID-19; Z79.899 Other long term (current) drug therapy; R79.89 Other specified abnormal findings of blood chemistry; M10.9 Gout, unspecified; E78.5 Hyperlipidemia, unspecified; R63.6 Underweight
CPT/HCPCS: 36600; 51701; 70450; 71045; 74176; 80048; 80053; 80202; 81003; 81015; 82805; 82962; 83036; 83605; 84484; 85025; 85610; 85730; 87040; 87070; 87077; 87086; 87154; 87186; 87205; 87502; 87811; 93005; 94660; 96361; 96374; 96375; 99291

== ENCOUNTER 2025-10-26 13:22 | Inpatient (IN) | payer OTHER, SELFPAY ==
[2025-10-26] MEDS: MORPHINE SULFATE 1 MG IV ×5 (14:08→23:38)
--- NOTE | 2025-10-26 14:17 | PTCARENOTE ---
Patient admitted to inhouse hospice. Room ready on rm [id number]. Waiting for call back from RN to give report. Medicated patient with 1mg IV morphine sulfate as per MD order for non-verbal pain rating 5/10.
--- NOTE | 2025-10-26 14:33 | W.PN.UPDATE ---
Update Note
Progress Note Update
Seen and examined the patient agree with plan formulated by the resident. See changes in my documentation
85-year-old man from local skilled nursing, reportedly was doing well able to converse until Friday. He became more drowsy poor p.o. intake and not able to converse since Friday. History obtained from the daughter.
Patient very drowsy - arouse
Pupils equal and reactive
Dry mucosa
Cardiovascular system S1-S2 appreciated
Chest decreased breath sounds bilateral
Abdomen soft , mild tenderness
No pedal edema
Chronic skin thickening of the lower extremities
Patient is not cooperative for a neuroexam
Chest x-ray reviewed by me-no acute infiltrates
EKG reviewed by me-accelerated junctional rhythm, PVCs, left axis deviation
# Acute TME- due to Acute Hypercarbia
# Acute acute/Hypercarbic resp failure- was placed on BIPAP
# Proteus Sepsis-present on admission-Likely source is urine
# Acute kidney injury-with mild hyperkalemia and hyponatremia
Possibly secondary to dehydration and poor p.o. intake
CT A/P with obstructive renal stone.
# Elevated troponin-Likely non ischemic myocardial injury from sepsis
# Sacral DTI, B/L Heel DTI, Ischeal stage 2
# Cardiomyopathy-unknown type
# Peripheral vascular disease
# Hyperlipidemia-hold atorvastatin as n.p.o.
# History of coronary disease-continue rectal aspirin.
# History of gout-hold allopurinol as n.p.o.
# Diabetes-hemoglobin W1e-fuoslgl.Accu-Cheks and sliding scale coverage. Hold Januvia
# Lewy body dementia
# History of dysphagia-speech eval when patient is more awake and alert
# Ambulate dysfunction
# Hypoalbuminemia
# DVT prophylaxis-subcutaneous heparin
# DNR
Had a very detailed conversation about the patient's 2 stepdaughters, step sons-in-law who have been very involved with the patient's care, and later with the patient's on the phone and later in person. Patient has been having issues with
dementia, he cannot make his needs known and clearly got to a state where he was very dehydrated and septic like this. Also has been requiring to be fed lately. has concerns of the patient being in skilled nursing and not having a good quality
of life. Discussed about renal failure, elevated troponin, dementia, hypercarbia. Patient is a DNR at this point. Given his quality of life as well as acute illness family decided to do hospice.
Discussed the case with urology also.
Initial plan was for nephrostomy tube but family does not want to put the patient through the procedure. He is too sick for cystoscopy.
Discussed with hospice as well as nursing at bedside
Patient transferred to inpatient hospice service. Time spent more than 60 minutes
[2025-10-26 14:55] VITALS: BMI 17.9
--- NOTE | 2025-10-26 15:04 | HPS.HSE ---
Addendum entered and electronically signed by Liberty Stubbs MD 10/26/25 17:00:
Seen and examined the patient with the resident. See my documentation from that same date.
Patient admitted to inpatient hospice
Original Note:
Family Physician
-
Family Physician: INTERVIEWE UNKNOWN - PT NOT
Chief Complaint
-
altered mental status
History of Present Illness
Patient is an 85-year-old male with PMH significant for Lewy body dementia, diabetes, hypertension, CAD, PVD, iron deficiency anemia, history of prostate cancer, gout who was brought to [facility] by EMS from [facility] for altered mental status with
fever. On arrival yesterday, patient was nonverbal and unable to provide history. In the ED, blood work was notable for Cr of 5.2, WBC 17.3. Lactic acid 1.8. Troponins elevated to 0.525. Chest x-ray showed hypoaerated lungs without consolidation.
No abnormal dilation of bowel loops visualized. Urinalysis revealed: 3+ leukocyte esterase, 50-60 WBCs, many bacteria, 4+ blood, 3+ albumin. EKG revealed accelerated junctional rhythm, PVCs, left axis deviation. Blood cultures and urine cultures
pending. Vancomycin and cefepime started in the ED. Patient started on fluids patient was admitted for further workup of toxic metabolic encephalopathy and sepsis secondary to UTI. Overnight patient was found to have a obstructing renal stone.
Urology was consulted and discussed possible options with the family.
Patients condition did not improve overnight.
Patient's and children have opted for comfort care for patient. Patient was admitted to inpatient hospice
Medical History
Past Medical History
Past Medical History: Reports Cancer, Dementia, Hypercholesterolemia and IDDM
Past Surgical History: Reports Cardiac
Social History
Unable to obtain full social history at this time due to: Dementia
Family History
Family History: Not pertinent
Allergies / Home Medications
Allergies reflects when Allergies were last updated in [employer].
Home Medications with original date entered in [employer]
Allergy/Medication List:
Allergies
Allergy/AdvReac Type Severity Reaction Status Date / Time
No Known Allergies Allergy Verified 12/27/24 09:22
Home Medications
acetaminophen 325 mg tablet 325 mg PO Q8HPRN PRN mild pain 12/27/24
allopurinol 300 mg tablet 300 mg PO DAILY Gout 12/27/24
aspirin 81 mg chewable tablet 81 mg PO DAILY Blood Clot Prevention/Tx 12/27/24
atorvastatin 10 mg tablet 10 mg PO DAILY High Cholesterol 12/27/24
bisacodyl 10 mg rectal suppository 10 mg [place] DAILY PRN constip, if MOM ineffective 12/27/24
cholecalciferol (vitamin D3) 25 mcg (1,000 unit) tablet (Vitamin D3) 25 mcg PO DAILY Supplement 12/27/24
cyanocobalamin (vitamin B-12) 1,000 mcg tablet (Vitamin B-12) 1,000 mcg PO DAILY Supplement 12/27/24
ferrous sulfate 325 mg (65 mg iron) tablet (iron) 325 mg PO DAILY Supplement 12/27/24
lidocaine 4 % topical gel 1 applic topical Q8HPRN PRN neck pain 12/27/24
loperamide 2 mg capsule 2 mg PO Q6HPRN PRN loose stools 12/27/24
magnesium hydroxide 400 mg/5 mL oral suspension (Milk of Magnesia) 2,400 mg PO HS PRN no BM x 3 days 12/27/24
melatonin 3 mg tablet 3 mg PO HS Sleep 12/27/24
polyethylene glycol 3350 17 gram oral powder packet (Miralax) 17 g PO DAILY Constipation 12/27/24
sitagliptin phosphate 50 mg tablet (Januvia) 50 mg PO DAILY Diabetes 12/27/24
Review of Systems
-
Unable to obtain full review of systems at this time due to: Dementia
Physical Exam
Physical Exam
General: Appears Chronically Ill
Respiratory: Decreased Breath Sounds
Cardiac: Regular Rhythm
GI: Soft, Non Tender and Non Distended
Musculoskeletal: No Edema
Skin: Dry
Neuro: Other (Unable to participate in neuroexam, unresponsive)
Impression/Plan
-
IMPRESSION:
Acute TME
Acute hypercarbic respiratory failure
Proteus sepsis
Acute kidney injury
PLAN:
Patient transferred to inpatient hospice service.
--- NOTE | 2025-10-26 15:47 | PTCARENOTE ---
Report given to Brad ACEVES. Patient transferred to [address] [place] [id number] in bed. All belongings with the patient.
[2025-10-26 15:53] VITALS: BP 131/65
[2025-10-26 19:10] VITALS: BP 94/38
--- NOTE | 2025-10-26 21:28 | HOSPNOTE ---
Patient has been admitted under inpatient hospice. Hospice will visit daily.
[2025-10-26] MEDS: ROBINUL 0.2 MG IV (21:38)
--- NOTE | 2025-10-27 02:27 | W.PN.DEATH ---
Pronouncement of
-
Called to see patient to pronounce.
No spontaneous heart tones or respirations noted.
Patient not responsive to verbal stimuli.
Patient is pronounced .
Time of : 01:20
Date of : 10/27/25
Cause of : Sepsis secondary to urinary tract infection, peripheral vascular disease,neurocognitive disorder with lewy bodies, type 2 diabetes mellitus, hypertension
Family Notified: Yes (Called & spoke with patient's daughter, Astrid Laughlin to inform pt passed)
--- NOTE | 2025-10-28 16:44 | W.DCSUMMARY ---
Discharge Summary
Discharge Data
Date of Admission: 10/26/25
Date of Discharge: 10/28/25
-
Pending Results: No
Hospital Course
Patient is an 85-year-old male with PMH significant for Lewy body dementia, diabetes, hypertension, CAD, PVD, iron deficiency anemia, history of prostate cancer, gout who was brought to [facility] by EMS from [facility] for altered mental status with
fever. On arrival yesterday, patient was nonverbal and unable to provide history. In the ED, blood work was notable for Cr of 5.2, WBC 17.3. Lactic acid 1.8. Troponins elevated to 0.525. Chest x-ray showed hypoaerated lungs without consolidation.
No abnormal dilation of bowel loops visualized. Urinalysis revealed: 3+ leukocyte esterase, 50-60 WBCs, many bacteria, 4+ blood, 3+ albumin. EKG revealed accelerated junctional rhythm, PVCs, left axis deviation. Vancomycin and cefepime started
in the ED. Patient started on fluids patient was admitted for further workup of toxic metabolic encephalopathy and sepsis secondary to Proteus UTI. Overnight patient was found to have a obstructing renal stone. Urology was consulted and discussed
possible options with the family.
Patients condition did not improve overnight.
Patient's and children opted for comfort care for patient. Patient was discharged to inpatient hospice on 10/26/2025. Patient on 10/27/2025 at 01:20. Family was notified.
Discharge Plan
-
Patient Disposition:
Date/Time
Date/Time: 10/27/25 01:20
Discharge Date and Time
Discharge Date/Time: 10/27/25 01:20
Print Language: INDIAN
== END 2025-10-27 01:20 | disposition expired | DRG 951 ==
LOC: 2 NORTH 13:22
PROVIDERS: ADMITTING PHYSICIAN Hospitalist
DX: Z51.5 Encounter for palliative care (principal); A41.59 Other Gram-negative sepsis; R65.20 Severe sepsis without septic shock; J96.02 Acute respiratory failure with hypercapnia; G92.8 Other toxic encephalopathy; N17.9 Acute kidney failure, unspecified; N13.6 Pyonephrosis; G31.83 Neurocognitive disorder with Lewy bodies; F02.80 Dementia in other diseases classified elsewhere, unspecified severity, without behavioral disturbance, psychotic disturbance, mood disturbance, and anxiety; I49.3 Ventricular premature depolarization; I25.10 Atherosclerotic heart disease of native coronary artery without angina pectoris; E11.51 Type 2 diabetes mellitus with diabetic peripheral angiopathy without gangrene; I10 Essential (primary) hypertension; Z66 Do not resuscitate; Z85.46 Personal history of malignant neoplasm of prostate